=== PATIENT | male | born 1940 | race Caucasian/White ===

== ENCOUNTER 2022-02-03 04:42 | Emergency (ER) | payer MEDICARE, SELFPAY ==
[2022-02-03] VITALS (8 sets, daily range): BP systolic 133–146; BP diastolic 75–82; PULSE 59–87; RESP 16–18; TEMP 36.9–37; O2SAT 95–98; BMI 29.4
--- NOTE | 2022-02-03 | ECG_ITS ---
Test Reason : DIZZINESS Blood Pressure : / mmHG Vent. Rate : 059 BPM Atrial Rate : 059 BPM P-R Int : 210 ms QRS Dur : 104 ms QT Int : 422 ms P-R-T Axes : 055 -08 029 degrees QTc Int : 417 ms Sinus bradycardia with 1st degree A-V block Otherwise normal ECG When compared with ECG of 28-DEC-2005 13:59, No significant change was found Referred By: Generic ED Physician Electronically Signed By:BRIAN ROSARIO
--- NOTE | ~2022-02-03 | CT_ITS ---
EXAMINATION: CT HEAD WITHOUT CONTRAST CLINICAL INFORMATION: Dizziness COMPARISON: None. TECHNIQUE: Contiguous axial imaging was performed from the skull base to vertex without intravenous contrast. This CT examination was performed using dose optimization techniques as appropriate, variously including the following: * Automated exposure control * Adjustment of mA and/or kV according to patient size (this includes techniques or standardized protocols for targeted exams where dose is matched to indication/reason for exam; i.e. extremities or head) Use of iterative reconstruction technique DLP: 770 mGy-cm. FINDINGS: There is no evidence of acute intracranial hemorrhage or territorial infarction. No abnormal mass effect or midline shift is seen. Lopez to white matter differentiation is well preserved. No extra-axial fluid collections are identified. No hydrocephalus. Proportional prominence of the ventricles and sulcal spaces is consistent with mild volume loss. Patchy periventricular and deep white matter hypoattenuation is consistent with mild small vessel ischemic changes. Right occipital craniectomy. No acute osseous or soft tissue abnormality. The mastoid air cells and visualized portions of the paranasal sinuses are well aerated. CT/CT head/brain wo con IMPRESSION: No acute intracranial pathology.
[2022-02-03 05:21] LABS: MANUAL DIFF FLAG NO
[2022-02-03 05:23] LABS: Basophils Percent Auto 0.4 % (0-2); Eosinophils Absolute Auto 0.4 X10*3/uL (0.0-0.4); Eosinophils Percent Auto 6.4 % (0-4); Hemoglobin 14.8 g/dl (14.0-18.0); Imm Gran Abs Auto 0.04 X10*3/uL (0.00-0.03); Imm Gran Pct Auto 0.6 % (0.0-0.4); Lymphocytes Absolute Auto 1.5 X10*3/uL (1.2-4.9); Lymphocytes Percent Auto 22.6 % (20-40); Mean Corpuscular HGB Conc 32.2 g/dl (31.0-36.0); Mean Corpuscular Hemoglobin 29.3 pg (27.0-33.0); Mean Corpuscular Volume 91.1 fL (80.0-98.0); Mean Platelet Volume 9.7 fL (9.4-12.4); Monocytes Absolute Auto 0.7 X10*3/uL (0.1-1.2); Monocytes Percent Auto 10.3 % (2-11); Neutrophils Percent Auto 59.7 % (45-73); Platelet Count 192 X10*3/uL (160-400); Red Blood Count 5.05 X10*6/uL (4.60-5.80); Red Cell Distribution Width 14.1 % (11.0-16.0); White Blood Count 6.7 X10*3/uL (4.8-10.8)
[2022-02-03 05:24] LABS: Appearance Urine Clear; Color Urine Yellow; Glucose Urine UA Negative (Negative); Leukocyte Esterase Urine Moderate (2+) (Negative); Nitrite Urine Positive (Negative); PH 5.5 (5.0-8.0); Urine Blood Trace (Negative); Urine Ketones Negative (Negative); Urine Protein Trace mg/dL (Neg-Trace)
[2022-02-03 05:26] LABS: Bacteria Urine 4+ (None Seen); Hyaline Casts Urine 0-2 /LPF (0-2); Squamous Epithelial Cell Urine 0-2 /HPF (0-2); UACC Culture Trigger YES; WBC Urine >50 /HPF (0-5)
--- NOTE | 2022-02-03 05:35 | ED.DIZZY ---
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 He states it lasted until EMS came. He had a normal day yesterday. He has not fallen or hit his head. MD elicited complaint: lightheadedness Onset (ago): hour(s) (330am) Timing: sudden onset and awoke with symptoms Description: lightheadedness Context: change in body position History of similar symptoms: No Exacerbating factors: change in body position Relieving factors: remaining still (he felt like if he was going to stand up he might fall ) Associated symptoms: other (unsure if he had tingling in his face) Related Data Allergies Allergy/AdvReac Type Severity Reaction Status Date / Time levofloxacin Allergy Unknown nausea and Verified 02/03/22 05:00 vomiting penicillin V Allergy Unknown Unknown Verified 02/03/22 05:00 Review of Systems Review of Systems: Constitutional : No Fever, No Chills, No Fatigue ENT/Mouth : No sore throat, No Rhinorrhea Eyes: No Eye Pain, No Swelling, No Redness Cardiovascular : No Chest Pain, No SOB, No Dyspnea on Exertion Respiratory : No Cough, No Sputum Gastrointestinal : No Nausea, No Vomiting, No Diarrhea, No abdominal Pain Genitourinary : No Dysuria, No Urinary Frequency, No Hematuria, Musculoskeletal : No joint pain, No Myalgias, No Joint Swelling Skin : No Skin Lesions, No rash Neuro : No Weakness, No Numbness, pos Dizziness, no Headache Psych : No Anxiety/Panic, No Depression Heme/Lymph: No Bruising, No Bleeding,No Lymphadenopathy Endocrine : No Polyuria, No Polydipsia All other systems reviewed and are negative [facility] Past Medical History Attestation statement: The following information was validated with the patient. Medical History Acoustic neuroma GERD (gastroesophageal reflux disease) HTN (hypertension) Social History Social History Alcohol intake: unknown Patient Tobacco Use Status: Never used Tobacco Use of substances other than those prescribed or required for medical reasons: Unknown Physical Exam Vital Signs: Vital Signs: Last Vital Signs Temp 98.6 F 02/03/22 05:45 Pulse 61 02/03/22 05:45 Resp 16 02/03/22 05:45 BP 145/76 H 02/03/22 05:45 Pulse Ox 95 02/03/22 05:45 O2 Del Method 02/03/22 05:45 BMI result Body Mass Index 29.4 Appearance: Alert. Oriented X3. No acute distress. Eyes: Pupils equal, round and reactive to light. ENT: Pharynx normal. Neck: Normal inspection. Neck supple. CVS: Normal heart rate and rhythm. Pulses normal. Respiratory: No respiratory distress. Breath sounds normal. Abdomen: Soft and non-tender. Skin: Skin warm and dry. Normal skin color. Normal skin turgor. Extremities: No lower extremity edema. No calf ttp Neuro: Oriented X 3. chronic R sided facial droop including forehead No motor deficit. No sensory deficit. Course Course Course Narrative: signed out to Dr. Elizondo repeat troponin MDM - Dizziness MDM Narrative Medical decision making narrative: 81 yo male with HTN, GERD, acoustic neuroma with surgery resulting in R sided facial paralysis here with c/o feeling like he could get dizzy and just off since 330am. No new focal deficits. The symptoms have resolved. He notes if he stood up that he might pass out. No CP/SOB no reported GIB symptoms. At this time will need labs, EKG, CT head for mass, repeat troponin. Dispo per results and findings. Lab Data Result diagrams: 02/03/22 05:11 02/03/22 05:11 Labs: Lab Results 02/03/22 02/03/22 02/03/22 Range/Units 05:11 05:11 05:11 WBC 6.7 (4.8-10.8) X10*3/uL RBC 5.05 (4.60-5.80) X10*6/uL Hgb 14.8 (14.0-18.0) g/dl Hct 46.0 (42.0-52.0) % MCV 91.1 (80.0-98.0) fL MCH 29.3 (27.0-33.0) pg MCHC 32.2 (31.0-36.0) g/dl RDW 14.1 (11.0-16.0) % Plt Count 192 (160-400) X10*3/uL MPV 9.7 (9.4-12.4) fL Immature Gran % (Auto) 0.6 H (0.0-0.4) % Neut % (Auto) 59.7 (45-73) % Lymph % (Auto) 22.6 (20-40) % Sheridan % (Auto) 10.3 (2-11) % Eos % (Auto) 6.4 H (0-4) % Baso % (Auto) 0.4 (0-2) % Lymph # (Auto) 1.5 (1.2-4.9) X10*3/uL Sheridan # (Auto) 0.7 (0.1-1.2) X10*3/uL Eos # (Auto) 0.4 (0.0-0.4) X10*3/uL Baso # (Auto) 0.0 (0.0-0.2) X10*3/uL Abs Immat Gran (auto) 0.04 H (0.00-0.03) X10*3/uL Absolute Neuts (auto) 4.0 (2.0-8.3) x10*3/uL Absolute Nucleated RBC 0.000 (0.0-0.012) X10*3/uL Nucleated RBC % (auto) 0.0 (0.0-0.2) /100WBC Sodium 140 (135-145) mmol/L Potassium 4.3 (3.3-5.1) mmol/L Chloride 106 (96-108) mmol/L Carbon Dioxide 24 (22-29) mmol/L Anion Gap 14 (12-20) BUN 23 H (9-16) mg/dL Creatinine 1.31 (0.5-1.4) mg/dL Estim Creat Clear Calc 52.3 Estimated GFR 53 Fasting Glucose 112 H (60-99) mg/dL Calcium 8.8 (8.4-10.2) mg/dL Urine Color Urine Appearance Urine pH (5.0-8.0) Ur Specific Mill[place] (1.005-1.025) Urine Protein (Neg-Trace) mg/dL Urine Glucose (UA) (Negative) mg/dL Urine Ketones (Negative) mg/dL Urine Blood (Negative) Urine Nitrite (Negative) Ur Leukocyte Esterase (Negative) Urine RBC (0-2) /HPF Urine WBC (0-5) /HPF Ur Squamous Epith Cells (0-2) /HPF Urine Bacteria (None Seen) Hyaline Casts (0-2) /LPF COVID-19 (NERY) Negative (Negative) COVID-19 Clin Com See Note 02/03/22 Range/Units 05:14 WBC (4.8-10.8) X10*3/uL RBC (4.60-5.80) X10*6/uL Hgb (14.0-18.0) g/dl Hct (42.0-52.0) % MCV (80.0-98.0) fL MCH (27.0-33.0) pg MCHC (31.0-36.0) g/dl RDW (11.0-16.0) % Plt Count (160-400) X10*3/uL MPV (9.4-12.4) fL Immature Gran % (Auto) (0.0-0.4) % Neut % (Auto) (45-73) % Lymph % (Auto) (20-40) % Sheridan % (Auto) (2-11) % Eos % (Auto) (0-4) % Baso % (Auto) (0-2) % Lymph # (Auto) (1.2-4.9) X10*3/uL Sheridan # (Auto) (0.1-1.2) X10*3/uL Eos # (Auto) (0.0-0.4) X10*3/uL Baso # (Auto) (0.0-0.2) X10*3/uL Abs Immat Gran (auto) (0.00-0.03) X10*3/uL Absolute Neuts (auto) (2.0-8.3) x10*3/uL Absolute Nucleated RBC (0.0-0.012) X10*3/uL Nucleated RBC % (auto) (0.0-0.2) /100WBC Sodium (135-145) mmol/L Potassium (3.3-5.1) mmol/L Chloride (96-108) mmol/L Carbon Dioxide (22-29) mmol/L Anion Gap (12-20) BUN (9-16) mg/dL Creatinine (0.5-1.4) mg/dL Estim Creat Clear Calc Estimated GFR Fasting Glucose (60-99) mg/dL Calcium (8.4-10.2) mg/dL Urine Color Yellow Urine Appearance Clear Urine pH 5.5 (5.0-8.0) Ur Specific [place] 1.020 (1.005-1.025) Urine Protein Trace (Neg-Trace) mg/dL Urine Glucose (UA) Negative (Negative) mg/dL Urine Ketones Negative (Negative) mg/dL Urine Blood Trace H (Negative) Urine Nitrite Positive H (Negative) Ur Leukocyte Esterase Moderate (2+) H (Negative) Urine RBC 3-5 H (0-2) /HPF Urine WBC >50 H (0-5) /HPF Ur Squamous Epith Cells 0-2 (0-2) /HPF Urine Bacteria 4+ (None Seen) Hyaline Casts 0-2 (0-2) /LPF COVID-19 (NERY) (Negative) COVID-19 Clin Com ECG Data Attestation: I personally reviewed and interpreted this ECG as follows: ECG interpretation date: 02/03/22 ECG interpretation time: 05:50 Interpretation: Rate: 59 Rhythm: sinus bradycardia with 1st degree AVB Harvel: left Normal P waves. 1st degree AVB Normal QRS complex. ST T wave : normal no MILLY qTC: normal prior studies: no acute ischemia The study has been interpreted contemporaneously by me. Discharge Plan Discharge Clinical Impression: Light-headedness Patient Disposition: Still a Patient
[2022-02-03 05:37] LABS: COVID-19 Test Negative (Negative)
[2022-02-03 05:39] LABS: Anion Gap 14 (12-20); Blood Urea Nitrogen 23 mg/dL (9-16); Calcium 8.8 mg/dL (8.4-10.2); Carbon Dioxide 24 mmol/L (22-29); Chloride 106 mmol/L (96-108); Creatinine Clr Calc Pharmacy 52.3; Estimated Glomerular Filt Rate 53; Glucose Fasting 112 mg/dL (60-99); Potassium 4.3 mmol/L (3.3-5.1); Sodium 140 mmol/L (135-145)
--- NOTE | 2022-02-03 05:39 | PC.NURSE ---
pt is back from CAT scan now
[2022-02-03 05:50] LABS: Alanine Aminotransferase 17 U/L (0-40); Albumin Level 3.6 g/dL (3.5-5.0); Alkaline Phosphatase 50 U/L (39-117); Aspartate Amino Transferase 19 U/L (5-37); Bilirubin Direct 0.3 mg/dL (0.0-0.5); Bilirubin Total 0.7 mg/dL (0.0-1.0); Magnesium 1.9 mg/dL (1.6-2.6); Total Protein 6.1 g/dL (6.5-8.0)
[2022-02-03 05:55] LABS: Troponin-I High Sensitivity < 3.5 ng/L (<3.5-35.0)
[2022-02-03 08:06] LABS: Lactic Acid 1.2 mmol/L (0.5-2.0)
[2022-02-03 08:15] LABS: Troponin-I High Sensitivity < 3.5 ng/L (<3.5-35.0)
[2022-02-03] MEDS: cefTRIAXone sodium 1 GM in 0.9 % Sodium Chloride 50 ML IV (08:28)
--- NOTE | 2022-02-03 09:07 | PC.NURSE ---
PT AOX4 AMB WITH STEADY GAIT WILL FOLLOW UP WITH PCP OR RETURN WITH ANY WORSENING SYMPTOMS, PT STATES UNDERSTANDING OF DC WITH TEACH BACK
== END 2022-02-03 09:07 | disposition home or self-care (01) ==
PROVIDERS: Emergency Medicine; Emergency Provider Emergency Medicine; PCP Nurse Practitioner Family
DX: R42 Dizziness and giddiness (principal); N39.0 Urinary tract infection, site not specified; B96.20 Unspecified Escherichia coli [E. coli] as the cause of diseases classified elsewhere; Z20.822 Contact with and (suspected) exposure to COVID-19; I10 Essential (primary) hypertension
CPT/HCPCS: 36415; 70450; 80048; 80076; 81001; 83605; 83735; 84484; 85025; 87040; 87086; 87088; 87186; 87635; 93005; 96374; 99284; 99285; J0696

== ENCOUNTER 2025-02-22 08:15 | Outpatient (AMB) | payer MEDICARE, SELFPAY ==
[2025-02-22 08:25] VITALS: BP 140/70; PULSE 64; TEMP 36.8; O2SAT 97; BMI 25.3
--- NOTE | 2025-02-22 08:25 | MHC.OFFWIV ---
Intake Vital Signs 02/22/25 08:25 Height 5 ft 10 in Weight 176 lb BMI 25.3 BP 140/70 H Blood Pressure Location Lt brachial Position Sitting Pulse 64 Pulse Source Pulse Oximeter Temp 98.3 F Temp Source Oral Pulse Oximetry (%) 97 Oxygen Delivery Method Room Air Intake Visit Reasons: ep sore lump on right arm Patient Tobacco Use Status: Never used Tobacco Allergies levofloxacin Allergy (Unknown, Verified 02/22/25 08:30) nausea and vomiting penicillin V Allergy (Unknown, Verified 02/22/25 08:30) Unknown Do you need a note to return to daycare/school/sports/work: No HPI HPI Comments History of Present Illness Details History of Present Illness - The patient is an 84-year-old male presenting with a lump and soreness in the right arm. - The soreness began over the weekend, initially localized to the right elbow joint, and progressed to a lump formation in the forearm. - The lump is now red, tender, and warm, though not severely painful. - There is no history of trauma or significant physical activity preceding the symptoms. - The patient has no prior history of blood clots in him or his family.. Physical Exam General: Cooperative, healthy appearing, comfortable, no acute distress and well developed Orientation: Patient oriented x3 Limitations: No limitations Head: Normal to inspection Ears: Hearing grossly normal bilaterally Nose: Normal External nose present Face and sinus: Normal facial exam Eyes: Appearance normal, both eyes and all related structures Neck: Normal visual inspection and Yes full ROM Respiratory: Normal respiratory effort and able to speak in complete sentences. Skin: as below Neuro: Patient oriented x3 Extremities: erythema, edema and tender lump noted on the right forearm [facility] Medical History Acoustic neuroma GERD (gastroesophageal reflux disease) HTN (hypertension) Social History Alcohol intake: unknown Patient Tobacco Use Status: Never used Tobacco Review of Systems Const All systems reviewed & are unremarkable except as noted in HPI and below Physical Exam Vital Signs: Last Vital Signs Temp 98.3 F 02/22/25 08:25 Pulse 64 02/22/25 08:25 BP 140/70 H 02/22/25 08:25 Pulse Ox 97 02/22/25 08:25 Oxygen Delivery Method Room Air 02/22/25 08:25 BMI result Body Mass Index 25.3 Assessment & Plan Assessment & Plan (1) Edema of right upper extremity: Code(s): R60.0 - Localized edema Plan: Patient was informed and verbally consented to the use of an ambient scribe for clinic note documentation during this visit. 1. Edema Of The Right Arm - Plan to perform a venous duplex ultrasound of the right upper extremity to rule out deep vein thrombosis (DVT). - Coordination with the hospital for the ultrasound due to scheduling constraints at the clinic. - Will call with results. (2) Lump of skin of right upper extremity: Code(s): R22.31 - Localized swelling, mass and lump, right upper limb Plan: as above Orders: Orders US venous duplex UE RT Today R22.31 - Localized swelling, mass and lump, right upper limb, R60.0 - Localized edema Medications: Discontinued cephalexin Discontinued Reason: Patient Completed Course 500 mg PO Q8H 21 caps 0RF Coding Level of Care Code New Pt Level 5 (90270) Diagnoses Edema of right upper extremity R60.0 Lump of skin of right upper extremity R22.31
== END 2025-02-22 09:21 | disposition home or self-care (01) ==
PROVIDERS: PCP Physician Assistant Surgical; Visit Provider Physician Assistant
DX: R22.31 Localized swelling, mass and lump, right upper limb (principal)

== ENCOUNTER 2025-02-22 15:36 | Outpatient (REF) | payer MEDICARE, SELFPAY ==
--- OUTSIDE RECORDS SUMMARY | 2025-02-16 14:17 | XMS_ITS | Encounter Summary ---
Author Organization [facility] Address [address] [place] [id number] Phone Care Team Providers Care Maintenance And Custodian Supervisor Name Role Phone Jason Deal PA-C Primary Care Provider [phone] Rafael Reaves MD Unavailable Encounter Details Date Type Department Care Team (Latest Contact Info) Description 02/16/2025 2:17 PM EDT - 02/16/2025 11:59 PM EDT Hospital Encounter [facility] [address] [place] [address] Jason Deal PA-C [address] [place] [address] [email or web address] Discharge Disposition: Home or Self Care Social History Tobacco Use Types Packs/Day Years Used Date Smoking Tobacco: Never Smokeless Tobacco: Never Alcohol Use Standard Drinks/Week Comments Yes 0 (1 standard drink = 0.6 oz pur e alcohol) 1-2 drinks, monthly or less Child or Family Care Answer Date Record ed Do you have problems with on e of the following making it difficult for you to work, study, or receive health care? No 09/11/2022 Education Answer Date Recorded Are you interested in more education? Not on zeus e 09/12/2024 Are you concerned about learning? Not on file 09/12/2024 No 09/12/2024 No 09/12/2024 Food Answer Date Recorded Within the past 6 months we worried whether our food would run out before we got money to buy more. Never True 09/11/2022 Within the past 6 months the food we bought just didn't last and we didn't have enough money to get more. Never True Residential Stability Answer Date Recor ded Family situation today data Not on file 08/15 How many times have you move d in the past 12 months? Zero (I did not move) 09/11/2022 Paying for Meds Answer Date Recorded Do you have trouble paying for medicines? No 09/11/2022 Paying Utility Bills Answer Date Record ed Do you have trouble paying your heating or elect ricity bill? No 09/11/2022 Transportation Answer Date Recorded Has the lack of transportati on kept you from medical appointments or from getting medications? No 09/11/2022 Unemployment Answer Date Recorded Are you currently unemployed or working on a part-time or temporary basis, and looking for work? No 09/11/2022 Digital Access Answer Date Recorded No 11/07/2022 No 11/07/2022 Reliable internet access at home? Not on file 11/07/2022 Device with a working camera? Not on file Intimate Partner Violence Answer Date R ecorded Are you denied basic needs s uch as food, clothing, or medical care? No 06/21/2024 In the past 12 months have y ou been in a relationship with a person who hurts, threatens, or tries to control you? No 06/21/2024 Are you denied basic needs s uch as food, clothing, or medical care? No 06/21/2024 In the past 12 months have y ou been in a relationship with a person who hurts, threatens, or tries to control you? No 06/21/2024 Sex and Gender Information Value Date Recorded Sex Assigned at Male 11/08/2020 8:04 AM EDT Legal Sex Male 10:11 PM EDT Gender Identity Male 11/08/2020 8:04 AM EDT Sexual Orientation Straight 11/08/2020 8: 04 AM EDT documented as of this encounter Medications at Time of Discharge acetaminophen (TYLENOL) 325 mg tablet Take 1-2 tablets (325-650 mg total) by mouth every 6 (six) hours as needed (mild - moderate pain). 03/10/2023 aspirin 81 mg chewable tablet Take 1 tablet (81 mg total) by mouth daily. 90 tablet 3 09/06/2020 atenolol (TENORMIN) 50 mg tabletIndications:E ssential hypertension TAKE 1 TABLET DAILY 90 tablet 3 08/02/2024 atorvastatin (LIPITOR) 80 MG tabletIndications:M ixed hyperlipidemia TAKE 1 TABLET ONCE DAILY 90 tablet 3 01/27/2025 clotrimazole-betame thasone (LOTRISONE) cream Apply 1 application topically 2 (two) times a day as needed. APPLY TO AFFECTED AREA 03/08/2021 glucosamine/msm/cho ndroitin A (GLUCOSAMINE OPG-EHV-WITMINQXUD) 400-200-333 mg TabIndications:3 tabs daily Take 3 tablets by mouth daily. Indications: 3 tabs daily 90 each 3 09/06/2020 hydrocortisone 2.5 % cream Apply topically 2 (two) times a day. 28 g 1 02/01/2025 lisinopril (PRINIVIL,ZESTRIL) 40 MG tabletIndications:E ssential hypertension Take 1 tablet (40 mg total) by mouth every morning. 90 tablet 3 10/05/2024 nitroglycerin (NITROSTAT) 0.[address] 1 tablet (0.4 mg total) under the tongue every 5 (five) minutes as needed for chest pain. 15 tablet 2 09/19/2024 omeprazole (PRILOSEC) 40 MG capsuleIndications: Gastroesophageal reflux disease without esophagitis TAKE 1 CAPSULE TWICE DAILY 180 capsule 3 10/31/2024 documented as of this encounter Plan of Treatment Upcoming Encounters Date Type Department Care Team (Late st Contact Info) Description 02/15/2025 Procedure Pass [facility], Ct Scan - [facility] [address] [place] [address] 03/07/2025 7:00 AM EDT Office Visit [facility] [address] [facility] 3rd Floor, [address] [place] [address] Carlos Nixon, [address] [facility] [address] [place] [address] 03/18/2025 12:00 PM EDT Appointment [facility], X-Ray - [address] [address] Jason Deal PA-C [address] [place] [email or web address] 03/18/2025 2:00 PM EDT Appointment [facility], Ct Scan - [address] [address] Jason Deal PA-C [address] [place] [phone] 04/04/2025 2:30 PM EDT Procedure visit [facility] [address] [place] [phone] Caty Cortez MD [address] [place] [address] [facility] [place] [phone] [email or web address] 07/05/2025 7:20 AM EST Office Visit [facility] [address] [place] [phone] Jason Deal PA-C [address] [place] [address] [phone] 07/10/2025 12:30 PM EST Office Visit [facility] [address] [place] [address] [phone] Elizabeth Hoffman MD [address] [place] [address] [facility] [address] documented as of this encounter Procedures Procedure Name Priority Date/Time Associated Diagnosis Comments HC BLOOD OCCULT FECAL HGB DETER IA QUAL FECES 1-3 Routine 02/16/2025 7:00 AM EDT Unexplained weight loss documented in this encounter Results * Fecal immunochemical test x1 (FIT) (02/16/2025 7:00 AM EDT) Immuno Fecal Occult Negative Negative [facility] Stool (Stool) 02/16/2025 7:0 0 AM EDT 02/16/2025 2:22 PM EDT us Jason Deal PA-C BODY FLUIDS AND STOOLS ORDERA BLES Final Result [address] [address] documented in this encounter Visit Diagnoses Diagnosis Unexplained weight loss Loss of weight documented in this encounter Additional Health Concerns Assessment Noted Time PHQ-2 Depression Total Score: 2 06/21/19 25 7:17 AM EST documented as of this encounter Care Teams Maintenance And Custodian Supervisor Relationship Specialty Start Date End Date Jason Deal PA-C [address] [place] [address] [email or web address] PCP - General Physician Biology Teacher 04/04/24 Rafael Reaves MD [address] [place] [address] [email or web address] Insurance Assigned Provider 09/18/24 documented as of this encounter Additional Source Comments The information contained in this document represents components of the legal health record. It is not the complete legal health record.[facility]
--- NOTE | ~2025-02-22 | US_ITS ---
EXAMINATION: US TRIPLEX UPPER EXTREMITY, RIGHT CLINICAL INFORMATION: Right upper extremity swelling COMPARISON: None available. TECHNIQUE: Color-flow triplex imaging with spectral analysis and compression Doppler was performed on the right upper extremity. FINDINGS: The right internal jugular, subclavian, and axillary veins are patent and free of thrombus. The imaged segment of the right brachiocephalic vein is patent. Spectral doppler waveforms are normal. The brachial, cephalic, radial, and ulnar veins are patent and compressible. The basilic vein is dilated and contains heterogeneous hypoechoic material without blood flow on color Doppler duplex. US/US venous duplex UE RT IMPRESSION: Superficial venous thrombosis involving the basilic vein. Bibiana Grace PAC was contacted by the pet technologist at 4:45 PM Eastern time. No evidence of deep venous thrombosis involving the right upper extremity. Electronically signed by: Juanito Palmer MD 02/22/2025 05:33 PM EDT
--- OUTSIDE RECORDS SUMMARY | 2025-02-22 18:27 | XMS_ITS | Clinical Summary ---
Author Organization [employer] [facility] Address [address] [place] [address] Care Team Providers Care Rv Service Technician Name Role Phone Lorne Roberts MD Primary Care Provider [phone] Allergies Active Allergy Reactions Criticality Noted Date Comments Levofloxacin Diarrhea,Other (See Comments) 04/17 Penicillins Rash Low 05/14/2017 Medications Medication Sig Dispensed Refills Start Date End Date Status aspirin 81 MG chewable tablet Chew 81 mg by mouth. 0 Active atenolol (TENORMIN) tablet 50 mg 0 09/07/2017 Active atorvastatin (LIPITOR) tablet 80 mg Take 80 mg by mouth. 0 Active NEXIUM 40 MG capsule 0 09/23/2017 Acti ve Glucosamine-Chondroiti n-MSM 400-333.3-200 MG TABS 2 tablets 0 Active ivermectin (STROMECTOL) 3 MG tablet 0 10/07/2017 Active lisinopril (PRINIVIL,ZESTRIL) tablet 20 mg 0 09/14/2017 Active mupirocin (BACTROBAN) 2 % ointment 0 10/01/2017 Active Family History Medical History Relation Name Comments Cancer Father Prostatitis Father Arthritis Mother Dementia Mother Relation Name Status Comments Father Mother Social History Tobacco Use Types Packs/Day Years Used Date Smoking Tobacco: Never Smokeless Tobacco: Never Alcohol Use Standard Drinks/Week Comments Yes 1 (1 standard drink = 0.6 oz pur e alcohol) month Sex and Gender Information Value Date Recorded Sex Assigned at Not on file Gender Identity Not on file Sexual Orientation Not on file Last Filed Vital Signs Vital Sign Reading Time Taken Comments Blood Pressure 140/90 10/08/2017 9:50 AM EDT Pulse - - Temperature - - Respiratory Rate - - Oxygen Saturation - - Inhaled Oxygen Concentration - - Weight 90.7 kg (200 lb) 10/08/2017 9:50 AM EDT Height 177.8 cm (5' 10 ) 10/08/2017 9:50 AM EDT Body Mass Index 28.7 10/08/2017 9:50 AM EDT Plan of Treatment Health Maintenance Due Date Last Done Comments COVID-19 Vaccine (#1) 1942 Depression Screening 1954 Preventative Health Evaluation 1960 Shingrix-Zoster Vaccine (1 of 2) 1992 Fall Risk Assessment 2007 DTap / Tdap / Td (1 - Tdap) 10/24/2009 10/23/2009 RSV Adult > 60+ Yrs or (1 - 1-dose 75+ series) 2017 Influenza Vaccine (#1) 2025 7, 04/30/2016, 04/18/2015, Additional history exists Pneumococcal Vaccine Completed 07/12/2015, 10/24/19 10 Hepatitis B Vaccines Aged Out No long er eligible based on patient's age to complete this topic RSV Ped < 20 months Aged Out No longe r eligible based on patient's age to complete this topic Care Teams Rv Service Technician Relationship Specialty Start Date End Date Lorne Roberts MD [address] [facility] [place] [place] [address] PCP - General Internal Medicine 09/30/17
--- OUTSIDE RECORDS SUMMARY | 2025-02-22 18:27 | XMS_ITS | Encounter Summary ---
Author Organization [facility] Address [address] [place] [address] Phone Care Team Providers Care Property Underwriter Name Role Phone Jason Deal PA-C Primary Care Provider [phone] Rafael Reaves MD Unavailable Reason for Visit * Reason Onset Date Comments Results 02/20/2025 Encounter Details Date Type Department Care Team (Late st Contact Info) Description 02/20/2025 Telephone [facility] Internal Medicine [address] [place], [place] [phone] Jason Deal PA-C [address] [place], [place] [phone] [email or web address] Results Social History Tobacco Use Types Packs/Day Years [...] AM EDT documented as of this encounter Progress Notes * Vita Davenport CMA - 02/20/2025 2:12 PM EDT Call to pt, aware * Vita Davenport CMA - 02/20/2025 2:12 PM EDT Jason Deal PA-C 02/15/2025 5:37 PM EDT Please let the patient know that his CMP and TSH are within normal limits. * Vita Davenport CMA - 02/20/2025 2:10 PM EDT Images from the original note were not included. Jason Deal PA-C [facility] Please let the patient know his FIT test was negative for blood in stool. documented in this encounter Plan of Treatment Upcoming Encounters Date Type Department Care Team (Late st Contact Info) Description 02/15/2025 Procedure Pass [facility], Ct Scan - [address] [address] 03/07/2025 7:00 AM EDT Office Visit [facility] [address] [place] [address], [address] [place] [address] Carlos Nixon DO [address] [place] [address] 03/18/2025 12:00 PM EDT Appointment [facility], X-Ray - [address] [address] Jason Deal PA-C [address] [place] [address] [email or web address] 03/18/2025 2:00 PM EDT Appointment [facility], Ct Scan - [address] [address] Jason Deal PA-C [address] [place] [address] 04/04/2025 2:30 PM EDT Procedure visit [facility] Orthopedics & Sports Medicine [address] [place] [address] [phone] Caty Cortez MD [address] [place] [address] Orthopedics & Sports [facility], [place], [place] [phone] [email or web address] 07/05/2025 7:20 AM EST Office Visit [facility] Internal Medicine [address] [place] [address] [phone] Jason Deal PA-C [address] [place] [address] [phone] 07/10/2025 12:30 PM EST Office Visit [facility] Orthopedics & Sports [address] [phone] Elizabeth Hoffman MD [address] [place] [address] Orthopedics & Sports [facility], [place], [place] [phone] documented as of this encounter Visit Diagnoses Not on filedocumented in this encounter Additional Health Concerns Assessment Noted Time PHQ-2 Depression Total Score: 2 06/21/19 7:17 AM EST documented as of this encounter Care Teams Property Underwriter Relationship Specialty Start Date End Date Jason Deal PA-C [address] [place] [address] [email or web address] PCP - General Physician Beater Operator 04/04/24 Rafael Reaves MD [address] [place] [address] [email or web address] Insurance Assigned Provider 09/18/24 documented as of this encounter Additional Source Comments The information contained in this document represents components of the legal health record. It is not the complete legal health record.[facility]
--- OUTSIDE RECORDS SUMMARY | 2025-02-22 18:27 | XMS_ITS | Encounter Summary ---
Author Organization [facility] Address [address] [facility] [address] [place] [address] Phone Care Team Providers Care Pediatric Assistant Name Role Phone Beth Vanegas NP Primary Care Provider [phone] Rafael Reaves MD Primary Care Provider [phone] Jason Deal PA-C Primary Care Provider [phone] Rafael Reaves MD Unavailable Encounter Details Date Type Department Care Team (Late st Contact Info) Description 12/01/2022 Procedure Pass [facility], [address] [address] Social History Tobacco Use Types Packs/Day Years Used Date Smoking Tobacco: Never Smokeless Tobacco: Never Alcohol Use Standard Drinks/Week Comments Yes 0 (1 standard drink = 0.6 oz pur e alcohol) rare Child or Family Care Answer Date Record ed Do you have problems with on e of the following making it difficult for you to work, study, or receive health care? No 09/11/2022 Education Answer Date Recorded Are you interested in help w ith more adult education (for example, completing high school, GED, job training, learning the Malaysian language, technical skills, or developing parenting skills)? No 09/11/2022 Food Answer Date Recorded Within the past [...] with a working camera? Not on file Sex and Gender Information Value Date Recorded Sex Assigned at Male 11/08/2020 8:04 AM EDT Legal Sex Male 10:11 PM EDT Gender Identity Male 11/08/2020 8:04 AM EDT Sexual Orientation Straight 11/08/2020 8: 04 AM EDT documented as of this encounter Plan of Treatment Upcoming Encounters Date Type Department Care Team (Late st Contact Info) Description 02/15/2025 Procedure Pass [facility], Ct Scan - [address] [address] 03/07/2025 7:00 AM EDT Office Visit [facility] [address] [place] [address] 3rd Floor, [address] [place] [address] Carlos Nixon DO [address] [facility] [address] [place] [address] 03/18/2025 12:00 PM EDT Appointment [facility], X-Ray - [address] [address] Jason Deal PA-C [address] [place] [address] 03/18/2025 2:00 PM EDT Appointment [facility], Ct Scan - [address] [address] Jason Deal PA-C [address] [place] [address] [email or web address] 04/04/2025 2:30 PM EDT Procedure visit [facility] Orthopedics & Sports Medicine [address] [place] [address] [phone] Caty Cortez MD [address] [place] [address] Orthopedics & Sports [facility], [place], [place] [phone] [email or web address] 07/05/2025 7:20 AM EST Office Visit [facility] Internal Medicine [address] [place] [address] Jason Deal PA-C [address] [place] [address] [phone] 07/10/2025 12:30 PM EST Office Visit [facility] Orthopedics & Sports Medicine [address] [place] [address] [phone] Elizabeth Hoffman MD [address] [place] [address] Orthopedics & Sports Medicine, [place] [address] documented as of this encounter Visit Diagnoses Not on filedocumented in this encounter Additional Health Concerns Assessment Noted Time PHQ-2 Depression Total Score: 0 09/17/19 23 7:01 PM EDT documented as of this encounter Care Teams Pediatric Assistant Relationship Specialty Start Date End Date Beth Vanegas NP [email or web address] PCP - General Family Medicine 06/20/20 08/18/23 Rafael Reaves MD [address] [place] [address] [email or web address] PCP - General Internal Medicine 08/19/23 04/03/24 Jason Deal PA-C [address] [place] [phone] [email or web address] PCP - General Physician Exercise Instruct 04/04/24 Rafael Reaves MD [address] [place] [address] [email or web address] Insurance Assigned Provider 09/18/24 documented as of this encounter Additional Source Comments The information contained in this document represents components of the legal health record. It is not the complete legal health record.[facility]
--- OUTSIDE RECORDS SUMMARY | 2025-02-22 18:27 | XMS_ITS | Encounter Summary ---
Author Organization [facility] Address [address] [place] [address] Phone Care Team Providers Care Manager Of Construction Name Role Phone Beth Vanegas NP Primary Care Provider [phone] Rafael Reaves MD Primary Care Provider [phone] Jason Deal PA-C Primary Care Provider [phone] Rafeal Reaves MD Unavailable Reason for Referral * MRI/CAT Scan - Closed Specialty Diagnoses / Procedures Referred By Elizabeth viveros Referred To Contact Radiology Diagnoses Facial weakness Dizziness and giddiness Sensorineural hearing loss, bilateral Procedures MRI Brain Marianna Alonso PA-C Phone: tel: fax: [email or web address] Referral ID Status Reason Start Date Expiration Date Visits Re quested Visits Authorized [id number] Closed 12/01/2022 1 1 Encounter Details Date Type Department Care Team (Late st Contact Info) Description 12/01/2022 Transcribe Orders Virtual Department [address] [place] [address] Marianna Alonso PA-C [address] [place] [address] [email or web address] Facial weakness (Primary Dx); Dizziness and giddiness; Sensorineural hearing loss, bilateral Social History Tobacco Use Types Packs/Day Years [...] high school, GED, job training, learning the Brazilian language, technical skills, or developing parenting skills)? [...] st Contact Info) Description 02/15/2025 Procedure Pass [facility] Ct Scan [address] [address] 03/07/2025 7:00 AM EDT Office Visit [facility] [address] [facility] 3rd Floor, [address] [place] [address] Carlos Nixon DO 22 [facility] [address] [place] [address] 03/18/2025 12:00 PM EDT Appointment [facility] X-Ray - [address] [address] Jason Deal PA-C [address] [place] [address] 03/18/2025 2:00 PM EDT Appointment [facility] Ct Scan [address] [address] Jason Deal PA-C [address] [place] [address] 04/04/2025 2:30 PM EDT Procedure visit [facility] Orthopedics & Sports Medicine [address] [place] [address] Caty Cortez MD [address] [place] [address] Orthopedics & Sports Medicine, [place] [address] [email or web address] 07/05/2025 7:20 AM EST Office Visit [facility] Internal Medicine [address] [place] [address] Jason Deal PA-C [address] [place] [address] 07/10/2025 12:30 PM EST Office Visit [facility] Orthopedics & Sports Medicine [address] [place] [address] Elizabeth Hoffman MD [address] [place] [address] Orthopedics & Sports Medicine, [facility] [place] [address] [email or web address] documented as of this encounter Results * MRI BRAIN WITH AND WITHOUT CONTRAST (12/25/2022 6:10 PM EDT) Anatomical Region Laterality Modality Head Magnetic Resonan ce 12/30/2022 7:53 AM EDT Impressions 12/30/2022 6:22 PM EDT No intracranial cause for the reported symptoms identified. Narrative 12/30/2022 6:22 PM EDT MRI BRAIN WITH AND WITHOUT CONTRAST TECHNIQUE: MRI BRAIN WITH AND WITHOUT CONTRAST Multi-sequence, multi-planar MRI of the brain was performed before and after intravenous contrast. COMPARISON: None FINDINGS: Brain Parenchyma: There is mild scattered T2/FLAIR hyperintensity in the periventricular and deep white matter which is nonspecific and can be seen in the setting of chronic small vessel disease. No evidence of acute infarct, mass lesion, or hemorrhage. No IAC or CP angle mass. Ventricular System and Extra-Axial Spaces: Normal. No evidence of midline shift or hydrocephalus. Extracranial Structures: Arterial flow voids in the skull base are present. Procedure Note Isreal Awad MD - 12/30/2022 MRI BRAIN WITH AND WITHOUT CONTRAST TECHNIQUE: MRI BRAIN WITH AND WITHOUT CONTRAST Multi-sequence, multi-planar MRI of the brain was performed before andafter intravenous contrast. COMPARISON: None FINDINGS: Brain Parenchyma: There is mild scattered T2/FLAIR hyperintensity in theperiventricular and deep white matter which is nonspecific and can be seenin the setting of chronic small vessel disease. No evidence of acuteinfarct, mass lesion, or hemorrhage. No IAC or CP angle mass. Ventricular System and Extra-Axial Spaces: Normal. No evidence of midlineshift or hydrocephalus. Extracranial Structures: Arterial flow voids in the skull base arepresent. IMPRESSION: No intracranial cause for the reported symptoms identified. Marianna Alonso PA-C [facility] MR HEAD/NECK Final R esult documented in this encounter Visit Diagnoses Diagnosis Facial weakness- Primary Dizziness and giddiness Sensorineural hearing loss, bilateral Facial weakness Dizziness and giddiness Sensorineural hearing loss, bilateral documented in this encounter Additional Health Concerns Assessment Noted Time PHQ-2 Depression Total Score: 0 09/17/19 23 7:01 PM EDT documented as of this encounter Care Teams Manager Of Construction Relationship Specialty Start Date End Date Beth Vanegas NP [email or web address] PCP - General Family Medicine 06/20/20 08/18/23 Rafael Reaves MD [address] [place] [address] PCP - General Internal Medicine 08/19/23 04/03/24 Jason Deal PA-C [address] [place] [address] [email or web address] PCP - General Physician World History Teacher 04/04/24 Rafael Reaves MD [address] [place] [phone] Insurance Assigned Provider 09/18/24 documented as of this encounter Additional Source Comments The information contained in this document represents components of the legal health record. It is not the complete legal health record.[facility]
--- OUTSIDE RECORDS SUMMARY | 2025-02-22 18:27 | XMS_ITS | Encounter Summary ---
Author Organization [facility] Address [address] [place] [address] [place] [address] Phone Care Team Providers Care Study Abroad Coordinator Name Role Phone Jason Deal PA-C Primary Care Provider [phone] Rafael Reaves MD Unavailable Encounter Details Date Type Department Care Team (Late st Contact Info) Description 09/19/2024 Procedure Pass [facility] [address] [place] [address] Social History Tobacco Use Types Packs/Day Years [...] st Contact Info) Description 02/15/2025 Procedure Pass [facility], Ct Scan - [facility] [address] [place] [address] 03/07/2025 7:00 AM EDT Office [facility] 3[facility], [address] [place] [address] ArcCarlos reich DO 22 [facility] [address] [place] [address] 03/18/2025 12:00 PM EDT Appointment [facility], X-Ray - [address] [address] Jason Deal PA-C [address] [place] [address] 03/18/2025 2:00 PM EDT Appointment [facility], Ct Scan - [address] [address] Jason Deal PA-C [address] [place] [address] 04/04/2025 2:30 PM EDT Procedure visit [facility] Orthopedics & Sports Medicine [address] [place] [address] Caty Cortez MD [address] [place] [address] Orthopedics & Sports Medicine, [place], [place] [phone] [email or web address] 07/05/2025 7:20 AM EST Office Visit [facility] Internal Medicine [address] [place] [address] Jason Deal PA-C [address] [place] [address] [phone] 07/10/2025 12:30 PM EST Office Visit [facility] Orthopedics & Sports Medicine [address] [place] [address] [phone] Elizabeth Hoffman MD [address] [place] [address] Orth[facility], [place] [phone] documented as of this encounter Visit Diagnoses Not on filedocumented in this encounter Additional Health Concerns Assessment Noted Time PHQ-2 Depression Total Score: 2 06/21/19 25 7:17 AM EST documented as of this encounter Care Teams Study Abroad Coordinator Relationship Specialty Start Date End Date Jason Deal PA-C [address] [place] [address] [email or web address] PCP - General Physician Transformer Mechanic 04/04/24 Rafael Reaves MD [address] [place] [address] [email or web address] Insurance Assigned Provider 09/18/24 documented as of this encounter Additional Source Comments The information contained in this document represents components of the legal health record. It is not the complete legal health record.[facility]
--- OUTSIDE RECORDS SUMMARY | 2025-02-22 18:27 | XMS_ITS | Clinical Summary ---
Author Organization [facility] Address [address] [place] [address] Phone Care Team Providers Care Veterans Service Officer Name Role Phone Lorne Roberts MD Primary Care Provider [phone] Allergies Active Allergy Reactions Criticality Noted Date Comments Levofloxacin Diarrhea,Nausea And Vomiting 05/14 Penicillins Rash,Unknown Low 02/13/2016 Medications omeprazole (PriLOSEC) [address] capsule Take 1 capsule (40 mg total) by mouth 2 times daily. 5 Active atorvastatin (LIPITOR) 80 mg tablet Take 1 tablet (80 mg total) by mouth daily. 6 Active atenoloL (TENORMIN) 50 mg tablet Take 1 tablet (50 mg total) by mouth daily. 6 Active lisinopriL (PRINIVIL,ZESTR IL) 20 mg tablet Take 2 tablets (40 mg total) by mouth 1 (one) time each day. 6 Active aspirin 81 mg chewable tablet Chew 1 tablet (81 mg total) daily. 1 Active glucosamine/msm /chondroitin A (glucosamine UIx-qwn-eodbuwk itn) 400-200-333 mg tablet Take 3 tablets by mouth daily. 1 Active clotrimazole-be tamethasone (LOTRISONE) 1-0.05 % cream Apply 1 Application topically 2 times daily as needed. 1 Active hydrocortisone (ANUSOL-HC) 2.5 % rectal cream Insert into the rectum 2 (two) times a day. Active Encounters Date Type Department Care Team Description 01/11/2025 12:21 PM EDT Anesthesia Event [facility] [place] [address] [place] [address] Skyler Villatoro MD 01/11/2025 11:00 AM EDT - 01/11/2025 12:[address] [facility] [place] [address] [place] [phone] Ibrahima Becerra MD CYSTOSCOPY, BLADDER NECK DILATION, BLADDER NECK BIOPSY [63880 (CPT ) +1 more] 01/11/2025 9:07 AM EDT - 01/11/2025 3:35 PM EDT Hospital Encounter [facility] [place] [address] [place] [phone] Ibrahima Becerra MD Bladder neck contracture; Urethral stricture; Prostatic hemorrhage Discharge Disposition: Home or Self Care from Last 3 Months Surgical History Surgery Date Site/Laterality Comments CYSTOSCOPY BLADDER SURGERY CHOLECYSTECTOMY NEUROMA SURGERY Right right ear ANGIOPLASTY Medical History Medical History Date Comments Hyperlipidemia Hypertension Arthritis GERD (gastroesophageal reflux disease) Myocardial infarction ([facility] V24, [facility] V28) 1999 Cancer ([facility] V24, [facility] V28) prostate Urinary incontinence Social History Tobacco Use Types Packs/Day Years Used Date Smoking Tobacco: Never Smokeless Tobacco: Never Tobacco Cessation:Counseling Given: Not Answered Alcohol Use Standard Drinks/Week Comments Yes 0 (1 standard drink = 0.6 oz pur e alcohol) socially Interpersonal Safety Answer Date Record ed Physical Abuse 01/11/2025 Verbal Abuse 01/11/2025 Sex and Gender Information Value Date Recorded Sex Assigned at Not on file Legal Sex Male 6:06 PM EST Gender Identity Not on file Sexual Orientation Not on file Obstetrics History Last Filed Vital Signs Vital Sign Reading Time Taken Comments Blood Pressure 158/77 01/11/2025 1:55 PM EDT Pulse 58 01/11/2025 1:55 PM EDT Temperature 36.5 C (97.7 F) 01/11/2025 1:55 PM EDT Respiratory Rate 16 01/11/2025 1:55 PM EDT Oxygen Saturation 100% 01/11/2025 1:55 PM EDT Inhaled Oxygen Concentration - - Weight 81.6 kg (180 lb) 01/11/2025 9:25 AM EDT Height 177.8 cm (5' 10 ) 01/11/2025 9:25 AM EDT Body Mass Index 25.83 01/11/2025 9:25 AM EDT Plan of Treatment Health Maintenance Due Date Last Done Comments RSV Immunization Adult Patients (1 - 1-dose 75+ series) 2017 Cholesterol Screening (Lipid Panel) 05/17/2022 Medicare Annual Wellness Visit 05/17/2022 Social Influencers of Health Screening 05/17/2022 Depression Screening 06/15/2024 COVID-19 Vaccine ( season) 2025 07/10/2020, 06/19/2020 Influenza Vaccine (#1) 2025 , 03/23/2023, 04/08/2022, Additional history exists Falls Risk Assessment 01/11/2026 01/11/2025 Hypertension/CHF/CAD Annual BMP Blood Test 01/11/2026 01/11/2025, 06/27/2024, 03/21/2024, Additional history exists DTaP,Tdap,and Td Vaccines (4 - Td or Tdap) 11/08/2028 11/08/2018, 10/23/2009, 10/18/2007 Pneumococcal Vaccine: 50+ Years Completed 07/12/2015, 10/23/2009, 10/18/2007, Additional history exists Zoster Vaccines Completed 09/12/2021, 03/15, 11/04/2007 HIB Vaccines Aged Out No longer eligi ble based on patient's age to complete this topic HPV Vaccines Aged Out No longer eligi ble based on patient's age to complete this topic Hepatitis A Vaccines Aged Out No long er eligible based on patient's age to complete this topic Hepatitis B Vaccines Aged Out No long er eligible based on patient's age to complete this topic IPV Vaccines Aged Out No longer eligi ble based on patient's age to complete this topic MMR Vaccines Aged Out No longer eligi ble based on patient's age to complete this topic Meningococcal ACWY Vaccine Aged Out N o longer eligible based on patient's age to complete this topic Meningococcal B Vaccine Aged Out No l onger eligible based on patient's age to complete this topic RSV Immunization Patients Under 20 months Aged Out No longer eligible based on patient's age to complete this topic Varicella Vaccines Aged Out No longer eligible based on patient's age to complete this topic Procedures Procedure Name Priority Date/Time Associated Diagnosis Comments TISSUE EXAM Routine 01/11/2025 12:48 PM EDT Bladder neck contracture Urethral stricture Prostatic hemorrhage TH AN LMA(NO CHARGE) Routine 01/11/2025 12:34 PM EDT WA TRANSURETHRAL INCISION OF PROSTATE 01/11/2025 12:21 PM EDT Bladder neck contracture Prostatic hemorrhage Other stricture of overlapping sites of urethra in 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 Case Notes C-ARM,COOK BLUE DILATOR/GUAMAN HOT KNIFE( PREF CARD) WA DILATION URETHRAL STRICTURE BY PASSAGE OF SOUND/DILATOR MALE INITIAL 01/11/2025 12:21 PM EDT Bladder neck contracture Prostatic hemorrhage Other stricture of overlapping sites of urethra in 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 - Benign prostatic glands with associated chronic inflammation. - Immunohistochemical studies were performed to assess the glands in the soft tissue beneath the urothelium and to rule out the possibility of prostatic carcinoma. The results are as follows: NKX3.1: Glandular epithelial cells are immunoreactive. PAX8: Glandular epithelial cells are negative. PIN-4 (AMACR, p63 andhigh molecular weight cytokeratin): Weak staining with AMACR is noted in occasional glands; most glands exhibit an associated basal cell layer. Interpretation: The expression of NKX3.1 and absence of PAX8 supports interpretation of the glands in the submucosa as prostatic glands. Most of the glands show an associated basal cell layer (p63 and high molecular weight cytokeratin). A few dilated, cytologically bland glands lack associated basal cells. The combined morphologic and immunohistochemical findings are not considered diagnostic of carcinoma and the glands may represent an area of atrophic changes. 4:[address] [facility] Gross Description A. Urinary Bladder, neck biopsy: Labeled bladder n bladder . Received in formalin, with Telfa, are four soft, cochran-red, focally cauterized tissue fragments ranging from 0.25 cm to 0.4 cm in greatest diameter, which are wrapped in paper and submitted in toto in one cassette, four pieces, multiple levels. TS 4:[address] [facility] Disclaimer NOTE: The immunohistochemical tests and in situ hybridization tests were developed and their performance characteristics were determined by [facility]. They have not been cleared or approved by the U.S. Food and Drug Administration. The FDA has determined that such clearance or approval is not necessary. These tests are used for clinical purposes. They should not be regarded as investigational or for research. This laboratory is certified under the Clinical Laboratory Improvement Amendments of 1988 (CLIA) as qualified to perform high complexity clinical laboratory testing. (controls appropriate) Unless otherwise specified, all tissue is 10% NB formalin fixed and paraffin embedded. 4:[address] [facility] Tissue Urinary bladder structure / Unknown 01/11/2025 12:48 PM EDT 01/11/2025 2:46 PM EDT us Ibrahima Becerra MD LAB PATHOLOGY ORDERABLES Final R esult [facility] [address] [place] [address], * TH AN LMA(NO CHARGE) (01/11/2025 12:34 PM EDT) Narrative Kenan Arriaga SRNA - 01/11/2025 12:34 PM EDT JUAN MANUEL Styles 01/11/2025 12:35 PM General Information and Staff Patient location during procedure: OR Anesthesiologist: Skyler Villatoro MD Other anesthesia staff: JUAN MANUEL Styles Performed: other anesthesia staff Performed by: JUAN MANUEL Styles Authorized by: Skyler Villatoro MD Intubation Urgency: elective Final Airway Details Number of attempts at approach: 1 LMA Size: 5 LMA Type: Unique LMA Seal Pressure: Final airway type: LMA Indications and Patient Condition Indications for airway management: anesthesia Spontaneous Ventilation: absent Sedation level: Yes Preoxygenated: yes Soft Tissue Damage: No Dentition Unchanged: Yes Patient position: neutral MILS maintained throughout Mask difficulty assessment: 0 - not attempted Skyler Villatoro MD ANESTHESIA ORDERABLES Final Re sult * (ABNORMAL) CBC auto differential (01/11/2025 9:52 AM EDT) WBC 7.7 4.8 - 10.8 K/mcL LAB HEMETOLOGY METHOD 01/11/2025 10:01 AM [facility] RBC 4.90 4.50 - 5.50 M/mcL LAB HEMETOLOGY METHOD 01/11/2025 10:01 AM [facility] Hemoglobin 14.2 13.5 - 17.5 g/dL LAB HEMETOLOGY METHOD 01/11/2025 10:01 AM [facility] Hematocrit 44.2 42.0 - 54.0 % LAB HEMETOLOGY METHOD 01/11/2025 10:01 AM [facility] MCV 89.5 79.0 - 98.0 FL LAB HEMETOLOGY METHOD 01/11/2025 10:01 AM [facility] MCH 28.7 27.0 - 32.0 pcg LAB HEMETOLOGY METHOD 01/11/2025 10:01 AM [facility] MCHC 32.1 32.0 - 37.0 g/dL LAB HEMETOLOGY METHOD 01/11/2025 10:01 AM [facility] RDW 15.2(H) 11.0 - 15.0 % LAB HEMETOLOGY METHOD 01/11/2025 10:01 AM [facility] Platelets 225 130 - 400 K/mcL LAB HEMETOLOGY METHOD 01/11/2025 10:01 AM [facility] MPV 9.5 7.0 - 11.0 FL LAB HEMETOLOGY METHOD 01/11/2025 10:01 AM [facility] NRBC 0.0 <1.0 % LAB HEMETOLOGY METHOD 01/11/2025 10:01 AM [facility] NRBC Absolute 0.00 <0.10 K/mcL LAB HEMETOLOGY METHOD 01/11/2025 10:01 AM [facility] Neutrophils Relative 62.0 % LAB HEMETOLOGY METHOD 01/11/2025 10:01 AM [facility] Lymphocytes Relative 25.6 % LAB HEMETOLOGY METHOD 01/11/2025 10:01 AM [facility] Monocytes Relative 8.2 % LAB HEMETOLOGY METHOD 01/11/2025 10:01 AM [facility] Eosinophils Relative 3.4 % LAB HEMETOLOGY METHOD 01/11/2025 10:01 AM [facility] Basophils Relative 0.4 % LAB HEMETOLOGY METHOD 01/11/2025 10:01 AM [facility] Immature Granulocytes Relative 0.4 % LAB HEMETOLOGY METHOD 01/11/2025 10:01 AM [facility] Neutrophils Absolute 4.75 1.50 - 7.00 K/mcL LAB HEMETOLOGY METHOD 01/11/2025 10:01 AM [facility] Lymphocytes Absolute 1.96 1.00 - 5.00 K/mcL LAB HEMETOLOGY METHOD 01/11/2025 10:01 AM [facility] Monocytes Absolute 0.63 0.20 - 1.00 K/mcL LAB HEMETOLOGY METHOD 01/11/2025 10:[address] [facility] Eosinophils Absolute 0.26 0.00 - 0.50 K/mcL LAB HEMETOLOGY METHOD 01/11/2025 10:[address] [facility] Basophils Absolute 0.03 0.00 - 0.20 K/mcL LAB HEMETOLOGY METHOD 01/11/2025 10:[address] [facility] Immature Granulocytes Absolute 0.03 0.00 - 0.03 K/mcL LAB HEMETOLOGY METHOD 01/11/2025 10:[address] [facility] Blood Venous blood specimen / Unknown Venipuncture / Unknown 01/11/2025 9:52 AM EDT 01/11/2025 9:55 AM EDT us Ibrahima Becerra MD LAB BLOOD ORDERABLES Final Resul t [facility] [address] [place] [address], * (ABNORMAL) Basic metabolic panel (01/11/2025 9:52 AM EDT) Sodium 138 133 - 145 mmol/L LAB CHEMISTRY METHOD 01/11/2025 10:23 AM [facility] Potassium 4.2 3.5 - 5.5 mmol/L LAB CHEMISTRY METHOD 01/11/2025 10:23 AM [facility] Chloride 105 96 - 110 mmol/L LAB CHEMISTRY METHOD 01/11/2025 10:23 AM [facility] CO2 28 21 - 32 mmol/L LAB CHEMISTRY METHOD 01/11/2025 10:23 AM [facility] Anion Gap 5 3 - 11 LAB CHEMISTRY METHOD 01/11/2025 10:23 AM [facility] Glucose 109(H) 70 - 100 mg/dL LAB CHEMISTRY METHOD 01/11/2025 10:[address] [facility] BUN 17 5 - 25 mg/dL LAB CHEMISTRY METHOD 01/11/2025 10:[address] [facility] Creatinine 1.11 0.70 - 1.30 mg/dL LAB CHEMISTRY METHOD 01/11/2025 10:[address] [facility] eGFR 66 >=60 mL/min/1. 73m2 LAB CHEMISTRY METHOD 01/11/2025 10:[address] [facility] Comment:Calculation based on the Chronic Kidney Disease Epidemiology Collaboration (CKD-EPI) equation refit without adjustment for race. BUN/Creatinine Ratio 15.3 LAB CHEMISTRY METHOD 01/11/2025 10:[address] [facility] Calcium 9.6 8.5 - 10.5 mg/dL LAB CHEMISTRY METHOD 01/11/2025 10:[address] [facility] Blood Venous blood specimen / Unknown Venipuncture / Unknown 01/11/2025 9:52 AM EDT 01/11/2025 9:56 AM EDT us Ibrahima Becerra MD LAB BLOOD ORDERABLES Final Resul t [facility] [address] [place] [address], from Last 3 Months Insurance [facility] Care Teams Veterans Service Officer Relationship Specialty Start Date End Date Lorne Roberts MD [address] [place] [phone] PCP - General Internal Medicine 09/30/17
--- OUTSIDE RECORDS SUMMARY | 2025-02-22 18:27 | XMS_ITS | Encounter Summary ---
Author Organization [facility] Address [address] [place] [address] [place] [address] Phone Care Team Providers Care Service Developer Name Role Phone Jason Deal PA-C Primary Care Provider [phone] Rafael Reaves MD Unavailable Encounter Details Date Type Department Care Team (Late st Contact Info) Description 02/22/2025 Orders Only [facility] [place] [facility] [address] [place] [address] Provider, MD Gaetano [address] [place] [id number] Social History Tobacco Use Types Packs/Day Years [...] st Contact Info) Description 02/15/2025 Procedure Pass [facility], Ct Scan - [address] [address] 03/07/2025 7:00 AM EDT Office Visit [facility] 22 [facility] 3rd Floor, [address] [place] [address] Carlos Nixon DO 22 [facility] [address] [place] [address] 03/18/2025 12:00 PM EDT Appointment [facility], X-Ray - [address] [address] Jason Deal PA-C [address] [place] [address] 03/18/2025 2:00 PM EDT Appointment [facility], Ct Scan - [address] [address] Jason Deal PA-C [address] [place] [phone] [email or web address] 04/04/2025 2:30 PM EDT Procedure visit [facility] [address] [place] [phone] Ctay Cortez MD [address] [place] [address] [facility], [place], [place] [phone] [email or web address] 07/05/2025 7:20 AM EST Office Visit [facility] Internal Medicine [address] [place] [address] Jason Dela PA-C [address] [place] [address] 07/10/2025 12:30 PM EST Office Visit [facility] [address] [place] [address] [phone] Elizabeth Hoffman MD [address] [place] [address] [facility] [place] [address] documented as of this encounter Procedures Procedure Name Priority Date/Time Associated Diagnosis Comments OUTSIDE US VEINS EXTREMITY UPPER REPORT ONLY Routine 02/22/2025 5:54 PM EDT documented in this encounter Results * Outside Veins Extremity Upper Report Only (02/22/2025 5:54 PM EDT) us Historical Provider MD ALONSO US EXTREMITY Final Re sult documented in this encounter Visit Diagnoses Not on filedocumented in this encounter Additional Health Concerns Assessment Noted Time PHQ-2 Depression Total Score: 2 06/21/19 25 7:17 AM EST documented as of this encounter Care Teams Service Developer Relationship Specialty Start Date End Date Jason Deal PA-C [address] [place] [address] [email or web address] PCP - General Physician Talent Engineer 04/04/24 Rafael Reaves MD [address] [place] [address] [email or web address] Insurance Assigned Provider 09/18/24 documented as of this encounter Additional Source Comments The information contained in this document represents components of the legal health record. It is not the complete legal health record.[facility]
--- OUTSIDE RECORDS SUMMARY | 2025-02-22 18:27 | XMS_ITS | Encounter Summary ---
Author Organization [facility] Address [address] [place] [address] Phone Care Team Providers Care Residential Support Worker Name Role Phone Beth Vanegas NP Primary Care Provider [phone] Rafael Reaves MD Primary Care Provider Jason Deal PA-C Primary Care Provider [phone] Rafael Reaves MD Unavailable Encounter Details Date Type Department Care Team (Late st Contact Info) Description 12/20/2021 Procedure Pass [place] Admitting Dept - [facility] Department [address] [place] [address] Social History Tobacco Use Types Packs/Day Years Used Date Smoking Tobacco: Never Smokeless Tobacco: Never Alcohol Use Standard Drinks/Week Comments No 0 (1 standard drink = 0.6 oz pur e alcohol) Sex and Gender Information Value Date Recorded Sex Assigned at Male 11/08/2020 8:04 AM EDT Legal Sex Male 10:11 PM EDT Gender Identity Male 11/08/2020 8:04 AM EDT Sexual Orientation Straight 11/08/2020 8: 04 AM EDT documented as of this encounter Plan of Treatment Upcoming Encounters Date Type Department Care Team (Late st Contact Info) Description 02/15/2025 Procedure Pass [facility], Ct Scan - [facility] [address] [place] [address] 03/07/2025 7:00 AM EDT Office Visit [facility] 22 [facility] 3rd Floor, [address] [place] [address] Carlos Nixon DO 22 [facility] [address] [place] [address] 03/18/2025 12:00 PM EDT Appointment [facility], X-Ray - [address] [address] Jason Deal PA-C [address] [place] [address] 03/18/2025 2:00 PM EDT Appointment [facility], Ct Scan - [address] [address] Jason Deal PA-C [address] [place] [address] 04/04/2025 2:30 PM EDT Procedure visit [facility] [address] [place] [address] Caty Cortez MD [address] [place] [address] Orth[facility], [place], [place] [phone] [email or web address] 07/05/2025 7:20 AM EST Office Visit [facility] Internal Medicine [address] [place] [phone] Jason Deal PA-C [address] [place] [phone] 07/10/2025 12:30 PM EST Office Visit [facility] [address] [place] [phone] Elizabeth Hoffman MD [address] [place] [address] Orthopedics & Sports Medicine, [facility] [place] [address] documented as of this encounter Visit Diagnoses Not on filedocumented in this encounter Additional Health Concerns Assessment Noted Time PHQ-2 Depression Total Score: 0 09/13/19 22 8:26 AM EDT documented as of this encounter Care Teams Residential Support Worker Relationship Specialty Start Date End Date Beth Vanegas PUBLIC ADDRESS TECHNICIAN PCP - General Family Medicine 06/20/20 08/18/23 Rafael Reaves MD [address] [place] [address] PCP - General Internal Medicine 08/19/23 04/03/24 Jason Deal PA-C [address] [place] [address] PCP - General Physician Director Transition 04/04/24 Rafael Reaves MD [address] [place] [phone] Insurance Assigned Provider 09/18/24 documented as of this encounter Additional Source Comments The information contained in this document represents components of the legal health record. It is not the complete legal health record.[facility]
--- OUTSIDE RECORDS SUMMARY | 2025-02-22 18:27 | XMS_ITS | Encounter Summary ---
Author Organization [facility] Address [address] [place] [id number] Phone Care Team Providers Care Teacher Lip Reading Name Role Phone Beth Vanegas NP Primary Care Provider [phone] Rafael Reaves MD Primary Care Provider [phone] Jason Deal PA-C Primary Care Provider [phone] Rafael Reaves MD Unavailable Encounter Details Date Type Department Care Team (Late st Contact Info) Description 03/10/2023 Procedure Pass [place] Admitting Dept - Virtual Department [address] [place] [address] Social History Tobacco Use Types Packs/Day Years Used Date Smoking Tobacco: Never Smokeless Tobacco: Never Alcohol Use Standard Drinks/Week Comments Yes 0 (1 standard drink = 0.6 oz pure alcohol) 1 drink when out to dinner only, every other month or so Child or Family Care Answer Date Record ed Do you have problems with on e of the following making it difficult for you to work, study, or receive health care? No 09/11/2022 Education Answer Date Recorded Are you interested in help w ith more adult education (for example, completing high school, GED, job training, learning the [place] language, technical skills, or developing parenting skills)? [...] st Contact Info) Description 02/15/2025 Procedure Pass [facility], Ct Scan - [address] [address] 03/07/2025 7:00 AM EDT Office Visit [facility] [address] [place] [address] [address] Floor, [address] [place] [address] Carlos Nixon DO [facility] [address] [place] [id number] 03/18/2025 12:00 PM EDT Appointment [facility], X-Ray - [address] [address] Jason Deal PA-C [address] [place] [address] [email or web address] 03/18/2025 2:00 PM EDT Appointment [facility], Ct Scan - [facility] [address] [place] [address] Jason Deal PA-C [address] [place] [address] 04/04/2025 2:30 PM EDT Procedure visit [facility] [address] [place] [id number] Caty Cortez MD [address] [place] [address] Orthopedics & Sports Medicine, [place], [place] [phone] [email or web address] 07/05/2025 7:20 AM EST Office Visit [facility] Internal Medicine [address] [place] [address] [phone] Jason Deal PA-C [address] [place] [address] [phone] 07/10/2025 12:30 PM EST Office Visit [facility] Medicine [address] [place] [address] [phone] Elizabeth Hoffman MD [address] [place] [address] Orthopedics & Sports Medicine, [place] [address] documented as of this encounter Visit Diagnoses Not on filedocumented in this encounter Additional Health Concerns Assessment Noted Time PHQ-2 Depression Total Score: 0 09/17/19 7:01 PM EDT documented as of this encounter Care Teams Teacher Lip Reading Relationship Specialty Start Date End Date Beth Vanegas NP [email or web address] PCP - General Family Medicine 06/20/20 08/18/23 Rafael Reaves MD [address] [place] [address] [email or web address] PCP - General Internal Medicine 08/19/23 04/03/24 Jason Deal PA-C [address] [place] [address] [email or web address] PCP - General Physician Wholesale Account Executive 04/04/24 Rafael Reaves MD [address] [place] [address] [email or web address] Insurance Assigned Provider 09/18/24 documented as of this encounter Additional Source Comments The information contained in this document represents components of the legal health record. It is not the complete legal health record.[facility]
--- OUTSIDE RECORDS SUMMARY | 2025-02-22 18:27 | XMS_ITS | Clinical Summary ---
Author Organization [facility] Address [address] [place] [phone] Phone Care Team Providers Care Milling Machine Operator Name Role Phone Jason Deal PA-C Primary Care Provider [phone] Rafael Reaves MD Unavailable Allergies Active Allergy Reactions Criticality Noted Date Comments Cephalexin Unknown 06/21/2024 Levofloxacin Diarrhea,Nausea and/or Vomiting Penicillins Rash Low 05/14/2017 Medications aspirin 81 mg chewable tablet Take 1 tablet (81 mg total) by mouth daily. 90 tablet 3 021 Active glucosamine/msm/c hondroitin A (GLUCOSAMINE [id number] N) 400-200-333 mg TabIndications:3 tabs daily Take 3 tablets by mouth daily. Indications: 3 tabs daily 90 each 3 021 Active clotrimazole-beta methasone (LOTRISONE) cream Apply 1 application topically 2 (two) times a day as needed. APPLY TO AFFECTED AREA 021 Active acetaminophen (TYLENOL) 325 mg tablet Take 1-2 tablets (325-650 mg total) by mouth every 6 (six) hours as needed (mild - moderate pain). 023 Active atenolol (TENORMIN) 50 mg tabletIndications :Essential hypertension TAKE 1 TABLET DAILY 90 tablet 3 025 Active nitroglycerin (NITROSTAT) 0.[address] 1 tablet (0.4 mg total) under the tongue every 5 (five) minutes as needed for chest pain. 15 tablet 2 025 Active lisinopril (PRINIVIL,ZESTRIL ) 40 MG tabletIndications :Essential hypertension Take 1 tablet (40 mg total) by mouth every morning. 90 tablet 3 025 Active omeprazole (PRILOSEC) 40 MG capsuleIndication s:Gastroesophagea l reflux disease without esophagitis TAKE 1 CAPSULE TWICE DAILY 180 capsule 3 025 Active atorvastatin (LIPITOR) 80 MG tabletIndications :Mixed hyperlipidemia TAKE 1 TABLET ONCE DAILY 90 tablet 3 025 Active hydrocortisone 2.5 % cream Apply topically 2 (two) times a day. 28 g 1 025 Active atorvastatin (LIPITOR) 80 MG tabletIndications :Mixed hyperlipidemia take 1 tablet once daily 90 tablet 3 024 2024 Discontinued Hospital, Clinic, or Other Facility Administered Medication Ordered Dose Route Frequency Start Date End Date Status triamcinolone acetonide (KENALOG-40) 40 mg/mL injection 20 mg 20 mg See Adm Inst Once 02/16/2025 02/16/2025 Ended lidocaine (XYLOCAINE) 1% injection 0.5 mL 0.5 mL See Adm Inst Once 02/16/2025 02/16/2025 Ended Active Problems Problem Noted Date Diagnosed Date Unexplained weight loss 02/15/2025 Assessment & Plan (02/15/2025 9:21 AM EDT): Patient with a history of prostate cancer with most recent PSA 0.04. Over the course of the past 6 months after losing his he has had an unexplained weight loss of 25lbs. Patient denies any blood in stool, cough or fatigue. He has a family history of cancer . - We will obtain a CT abdomen and pelvis given his history of prostate cancer concern for metastatic disease secondary to the unexplained weight loss. -We will also obtain a chest x-ray -We will obtain a CBC with differential to rule out leukemia, TSH and a fit test Needs flu shot 02/15/2025 Assessment & Plan (02/15/2025 9:22 AM EDT): Flu vaccine given Prediabetes 06/21/2024 Assessment & Plan (02/15/2025 9:17 AM EDT): Patient with a history of prediabetes with most recent hgb A1c was noted 5.6. He will continue diet and exercise. Assessment & Plan (10/03/2024 7:16 AM EDT): Again this is all diet related which I thoroughly explained to the patient and his family Assessment & Plan (09/19/2024 9:17 AM EDT): Patient noted to have a hemoglobin A1c of 6.0 back in June. He is diet and exercise controlled. We will repeat at his follow-up as it will be 3 months at that time. S/P umbilical hernia repair, follow-up exam 03/15 Hearing aid worn 09/17/2022 Renal insufficiency 09/06/2020 Assessment & Plan (10/20/2023 1:47 PM EDT): Assess kidney function in the setting of possible obstructive uropathy history. Total urinary incontinence 07/30/2018 Assessment & Plan (04/04/2024 12:53 PM EDT): Patient follows with Dr. Campbell Acute renal failure d/t procedure 05/14/2017 Arthralgia of both hands 05/14/2017 Atherosclerosis of [place] co ronary artery of [place] heart without angina pectoris 05/14/2017 Assessment & Plan (04/04/2024 12:54 PM EDT): Patient with a history of DE in the past and has not been following with a director web for quite some time. Continue aspirin 81 mg daily and atenolol 50 mg p.o. daily. 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 daily and lisinopril 40 mg p.o. daily. These medications will be continued Assessment & Plan (10/03/2024 7:16 AM EDT): Not adequately controlled I increased lisinopril to 40 Assessment & Plan (09/19/2024 9:17 AM EDT): Patient noted to have a slight elevated blood pressure today of 140/70 however he has been under a significant amount of stress since his recently passed about a month and a half ago. -Continue atenolol 50 mg p.o. daily and lisinopril 20 mg daily Assessment & Plan (04/04/2024 12:52 PM EDT): Well-controlled on atenolol 50 mg p.o. daily and lisinopril 20 mg p.o. daily Assessment & Plan (10/20/2023 1:45 PM EDT): Pressures well-controlled, will probably see him twice a year regarding the blood pressure. Currently taking atenolol and lisinopril will continue that as it is working well. If orthostatic please increase hydration. Check electrolytes kidney function just prior to the next visit which will be a wellness visit in March. Gastroesophageal reflux disease without esophagi tis 05/14/2017 Assessment & Plan (04/04/2024 12:53 PM EDT): Continue Prilosec 40 mg p.o. daily History of prostate cancer 05/14/2017 Assessment & Plan (04/04/2024 12:52 PM EDT): Patient with a history of prostate cancer who underwent seed placement years ago and continues to follow with Dr. Campbell Mixed hyperlipidemia 05/14/2017 Assessment & Plan (02/15/2025 9:21 AM EDT): Patient with a history of hyperlipidemia on lipitor 80mg daily. His current LDL is 80 and his triglycerides are noted at 111. Given his past medical history he is not noted to be at goal less than 70 on his LDL. Patient does have an upcoming appointment with his director web on 03/07. I did explain to the patient that his director web may require him to be on an additional medication to achieve this goal. He is also to continue his diet and exercise. Assessment & Plan (10/03/2024 7:16 AM EDT): A1c should be less than 7 and LDL less than 70 mg/dL given the guidelines. LDL is still too high but he is following a poor diet which we went over in detail today Assessment & Plan (09/19/2024 9:17 AM EDT): Last lipid panel in June was well within normal limits. Patient is to continue Lipitor 80 mg p.o. daily we will repeat lipid panel at his next office visit. Assessment & Plan (04/04/2024 12:53 PM EDT): Recent lab work at the beginning of this month showed an LDL of 84 continue atorvastatin 80 mg p.o. daily Assessment & Plan (10/20/2023 1:46 PM EDT): Continue Lipitor 80, check lipid profile and liver enzymes. Resolved Problems Problem Noted Date Diagnosed Date Resolved Date Chest pain 09/19/2024 02/15/2025 Assessment & Plan (10/03/2024 7:16 AM EDT): I do not get the sense he is having active angina he is getting a stress test which is a nuclear stress test we will call him in earlier if his test is abnormal Assessment & Plan (09/19/2024 9:17 AM EDT): Patient mentions that he has been having intermittent left-sided chest pressure with associated dizziness. He denies any radiation of pain down the arm or to the jaw or to the back. He denies any shortness of breath with these episodes. He describes the episodes as similar to that of when he had his previous heart attack about 30 years ago. Patient mentions that it is mainly upon exertion and decreases at rest which constitutes the symptoms as more angina EKG obtained here in the office which shows sinus rhythm without ST-T wave elevations or depressions. Heart rate noted at 59--this was discussed with Dr. Reaves -I will obtain an urgent [facility] cardiology referral -Urgent stress test -Echocardiogram -Nitroglycerin sublingual tablets given 0.4 mg p.o. every 5 minutes as needed -Patient was advised that if he develops chest pressure to call 911 and be transferred to the emergency department for further evaluation. Patient acknowledges and understands Left arm numbness 06/21/2024 02/15/2025 Hordeolum externum of right upper eyelid 06/21/2024 02/15/2025 Elevated fasting blood sugar 09/17/2022 02/15/2025 Assessment & Plan (10/20/2023 1:46 PM EDT): Last A1c was 5.5%, will obtain another 1 and if it is below 5.7%. Stop assessing it. Self-catheterizes urinary bladder 05/14/2017 09/17/2022 Encounters Date Type Department Care Team Description 02/22/2025 Orders Only [facility] Internal Medicine [address] [place] [address] Provider, MD Gaetano 02/20/2025 Telephone [facility] [address] [place] [address] Jason Deal PA-C Results 02/16/2025 2:17 PM EDT - 02/16/2025 11:59 PM EDT Hospital Encounter [facility] [address] [place] [address] Jason Deal PA-C Discharge Disposition: Home or Self Care 02/16/2025 1:00 PM EDT Office Visit [facility] [address] [place] [address] Elizabeth Hoffman MD Numbness and tingling in left hand (Primary Dx) 02/15/2025 9:48 AM EDT - 02/15/2025 11:59 PM EDT Hospital Encounter [facility] [address] [place] [address] Jason Deal PA-C Discharge Disposition: Home or Self Care 02/15/2025 8:40 AM EDT Office Visit [facility] [address] [place] [address] Jason Deal PA-C Mixed hyperlipidemia (Primary Dx); Needs flu shot; Unexplained weight loss; Prediabetes; Essential hypertension 02/09/2025 8:50 AM EDT - 02/09/2025 11:59 PM EDT Hospital Encounter [facility] [address] [place] [address] Jason Deal PA-C Discharge Disposition: Home or Self Care 02/09/2025 Transcribe Orders [facility] [address] [place] [address] Ibrahima Becerra MD Personal history of malignant neoplasm of prostate (Primary Dx) 02/09/2025 Telephone [facility] [address] [place] [address] Jason Deal PA-C 02/01/2025 Telephone [facility] [address] [place] [address] Christine Hernandez RN Medication Question 01/27/2025 Refill [facility] [address] [place] [address] Rafael Reaves MD Medication Refill from Last 3 Months Immunizations Immunization Administration Dates Next Due COVID-19 (Pre-04/06) Pfizer Vaccine, mRNA, PF 07/10/2020,06/19/2020 INFLUENZA, SPLIT VIRUS, TRIV ALENT W/ PRESERVATIVE IM 04/30/2016,04/18/2015,02/20/2012 Influenza High-Dose Quadriva lent Preservative Free IM 03/23/2023,04/08/2022,03/01/2021,02/24 Influenza High-Dose Trivalen t Preservative Free IM 02/15/2025,03/18/2024,03/19/2019,03/07,03/05/2017,03/09/2014 Influenza, Unspecified Formulation 10/23/2009 Pneumococcal conjugate PCV13 07/12/2015 Pneumococcal polysaccharide PPSV23 10/23/2009, Td, unspecified formulation 10/23/2009 Tdap 11/08/2018 Zoster live 11/04/2007 Zoster recombinant 09/12/2021,03/25/2018 Family History Medical History Relation Comments No Known Problems Daughter 2 Heart disease Father Liver cancer Father Dementia Mother Stroke Mother No Known Problems Son 4 Relation Status Comments Daughter 1 Alive Daughter 2 Alive Father (Age 82) Mother (Age 87) Son 1 Alive Son 2 Alive Son 3 Alive Son 4 Alive Social History Tobacco Use Types Packs/Day Years [...] Orientation Straight 11/08/2020 8: 04 AM EDT Last Filed Vital Signs Vital Sign Reading Time Taken Comments Blood Pressure 134/78 02/15/2025 8:33 AM EDT Pulse 63 02/15/2025 8:33 AM EDT Temperature 36.2 C (97.1 F) 09/19/2024 7:59 AM EDT Respiratory Rate 16 02/15/2025 8:33 AM EDT Oxygen Saturation 98% 02/15/2025 8:33 AM EDT Inhaled Oxygen Concentration - - Weight 81.4 kg (179 lb 6.4 oz) 02/15/2025 8:33 A M EDT Height 172 cm (5' 7.72 ) 02/15/2025 8:33 AM EDT Body Mass Index 27.51 02/15/2025 8:33 AM EDT Plan of Treatment Upcoming Encounters Date Type Department Care Team (Late st Contact Info) Description 02/15/2025 Procedure Pass [facility], Ct Scan - [facility] [address] [place] [address] 03/07/2025 7:00 AM EDT Office Visit [facility] [address], [address] [place] [address] Carlos Sharpe DO [address] [facility] [address] [place] [address] 03/18/2025 12:00 PM EDT Appointment [facility], X-Ray - [address] [address] Jason Deal PA-C [address] [place] [phone] 03/18/2025 2:00 PM EDT Appointment [facility] Ct Scan - [address] [address] Jason Deal PA-C [address] [place] [email or web address] 04/04/2025 2:30 PM EDT Procedure visit [facility] [address] [place] [address] Caty Cortez MD [address] [place] [address] Orthopedics & Sports Medicine, [place], [place] [phone] [email or web address] 07/05/2025 7:20 AM EST Office Visit [facility] Internal Medicine [address] [place] [address] Jason Deal PA-C [address] [place] [address] [phone] 07/10/2025 12:30 PM EST Office Visit [facility] [address] [place] [address] [phone] Elizabeth Hoffman MD [address] [place] [address] [facility], [place], [place] [phone] [email or web address] Health Maintenance Due Date Last Done Comments RSV VACCINE (1 - 1-dose 75+ series) 2017 COVID-19 VACCINE ( season) 2025 03/18/2024, 03/23/2023, 04/21/2022, Additional history exists DEPRESSION SCREENING 06/21/2025 06/21/2024 BLOOD PRESSURE 08/15/2025 02/15/2025 CREATININE LEVEL 02/09/2026 02/09/2025, , 03/21/2024, Additional history exists POTASSIUM LEVEL 02/09/2026 02/09/2025, 06/15, 03/21/2024, Additional history exists Adult Td,Tdap Booster 11/08/2028 11/08/2018, 010 PNEUMOCOCCAL VACCINES (50+ years) Completed 07/12/2015, 10/23/2009, 05/10/2007 ZOSTER VACCINES Completed 09/12/2021, 03/15, 11/04/2007 INFLUENZA VACCINE Completed 02/15/2025, , 03/23/2023, Additional history exists HEPATITIS A VACCINES Aged Out No long er eligible based on patient's age to complete this topic HIB VACCINES Aged Out No longer eligi ble based on patient's age to complete this topic MENINGOCOCCAL VACCINES (ACWY) Aged Out No longer eligible based on patient's age to complete this topic MENINGOCOCCAL VACCINES (B) Aged Out N o longer eligible based on patient's age to complete this topic Medical Devices Implanted Type Area Ski Lift Operator Device Identifier Shelf Expiration Date Model / Serial / Lot Mesh Surgical 15cm 8 Hernia Prolene Polypropylene Nonabsorbable Repair Bx/6ea - [id number] Implanted:Qty: 1 on 03/10/2023 by Katia Chandra MD at [facility] STANDARD N/A: Umbilical ISABELLAJ ETHICON / DIVISION OF J [id number] 03/14/2027 PMII / / SLBHAQ Procedures Procedure Name Priority Date/Time Associated Diagnosis Comments OUTSIDE US VEINS EXTREMITY UPPER REPORT ONLY Routine 02/22/2025 5:54 PM EDT HC BLOOD OCCULT FECAL HGB DETER IA QUAL FECES 1-3 Routine 02/16/2025 7:00 AM EDT Unexplained weight loss CBC AND DIFFERENTIAL Routine 02/15/2025 9:47 AM EDT Unexplained weight loss TSH WITH REFLEX Routine 02/15/2025 9:47 AM EDT Unexplained weight loss PSA DIAGNOSTIC (MONITORING) Routine 02/09/2025 8:45 AM EDT Personal history of malignant neoplasm of prostate COMPREHENSIVE METABOLIC PANEL Routine 02/09/2025 8:45 AM EDT Hyperlipidemia, unspecified hyperlipidemia type LIPID PANEL Routine 02/09/2025 8:45 AM EDT Mixed hyperlipidemia HEMOGLOBIN A1C Routine 02/09/2025 8:45 AM EDT Essential hypertension Mixed hyperlipidemia from Last 3 Months Results * Outside US Veins Extremity Upper Report Only (02/22/2025 5:54 PM EDT) us Historical Provider MD ALNOSO US EXTREMITY Final Re sult * Fecal immunochemical test x1 (FIT) (02/16/2025 7:00 AM EDT) Immuno Fecal Occult Negative Negative [facility] Stool (Stool) 02/16/2025 7:0 0 AM EDT 02/16/2025 2:22 PM EDT Jason Deal PA-C BODY FLUIDS AND STOOLS ORDERA BLES Final Result [facility] [address] [place] [address] * TSH with reflex (02/15/2025 9:47 AM EDT) TSH 3.73 0.27 - 4.20 uIU/mL [facility] Blood 02/15/2025 9:47 AM EDT 02/15/2025 9:53 AM EDT us Jason Deal PA-C LAB BLOOD ORDERABLES Final Re sult [facility] [address] [place] [address] * (ABNORMAL) CBC and differential (02/15/2025 9:47 AM EDT) WBC 7.03 4.00 - 11.00 K/uL [facility] RBC 4.89 4.50 - 5.90 M/uL [facility] HGB 14.2 13.5 - 17.5 g/dL [facility] HCT 44.2 41.0 - 53.0 % [facility] PLT 259 150 - 450 K/uL [facility] MCV 90.4 80.0 - 100.0 fL [facility] MCH 29.0 27.0 - 31.0 pg [facility] MCHC 32.1 32.0 - 36.0 g/dL [facility] RDW 14.8(H) 11.5 - 14.5 % [facility] MPV 9.8 8.4 - 12.0 fL [facility] NRBC 0.00 0.00 /100 WBCs [facility] ABSOLUTE NRBC 0.00 0.00 K/uL [facility] DIFF METHOD Auto [facility] NEUTS 61.6 48.0 - 76.0 % [facility] LYMPHS 24.3 18.0 - 41.0 % [facility] MONOS 10.2 4.0 - 11.0 % [facility] EOS 3.1 0.0 - 5.0 % [facility] BASOS 0.4 0.0 - 1.5 % [facility] Granulocytes, immature (%) 0.4 0.0 - 0.9 % [facility] ABSOLUTE NEUTS 4.32 1.92 - 7.60 K/uL [facility] ABSOLUTE LYMPHS 1.71 0.72 - 4.10 K/uL [facility] ABSOLUTE MONOS 0.72 0.16 - 1.10 K/uL [facility] ABSOLUTE EOS 0.22 0.00 - 0.50 K/uL [facility] ABSOLUTE BASOS 0.03 0.00 - 0.15 K/uL [facility] Granulocytes, immature 0.03 0.00 - 0.09 K/uL [facility] Blood 02/15/2025 9:47 AM EDT 02/15/2025 9:53 AM EDT us Jason Deal PA-C LAB BLOOD ORDERABLES Final Re sult [address] [address] * (ABNORMAL) Comprehensive metabolic panel (02/09/2025 8:45 AM EDT) SODIUM 137 133 - 146 mmol/L [facility] POTASSIUM 4.4 3.3 - 5.1 mmol/L [facility] CHLORIDE 103 96 - 108 mmol/L [facility] CO2 25 21 - 35 mmol/L [facility] BUN 18 6 - 19 mg/dL [facility] CREATININE 1.00 0.5 - 1.5 mg/dL [facility] GLUCOSE 106(H) 70 - 99 mg/dL [facility] ALBUMIN 3.7(L) 3.9 - 4.8 g/dL [facility] TOTAL PROTEIN 6.8 6.5 - 8.0 g/dL [facility] CALCIUM 9.6 8.4 - 10.3 mg/dL [facility] ALKALINE PHOSPHATASE 68 39 - 117 U/L [facility] TOTAL BILIRUBIN 0.8 0.0 - 1.2 mg/dL [facility] AST 20 0 - 37 U/L [facility] ALT 11 0 - 40 U/L [facility] GLOBULIN 3.1 1 - 4.8 g/dL [facility] EGFR 75 >59 mL/min/1.7 3m2 [facility] Comment:Estimated glomerular filtration rate calculated using the CKD-EPI refit equation. ANION GAP 13 10 - 20 mmol/L [facility] Blood 02/09/2025 8:45 AM EDT 02/09/2025 8:50 AM EDT us Jason Deal PA-C LAB BLOOD ORDERABLES Final Re sult Performing Organization Address City/[facility]/ZIP Co de Phone Number [address] [address] * PSA diagnostic (monitoring) (02/09/2025 8:45 AM EDT) PSA 0.04 0 - 4.00 ng/mL [facility] Comment: Test Methodology Jorge [id number] Patient results determined by assays using different manufacturers or methods may not be comparable. Blood 02/09/2025 8:45 AM EDT 02/09/2025 8:50 AM EDT us Ibrahima Becerra MD LAB BLOOD ORDERABLES Final Res ult Performing Organization Address [facility]/ZIP Co de Phone Number [address] [address] * Hemoglobin A1c (02/09/2025 8:45 AM EDT) HEMOGLOBIN A1C 5.6 4.3 - 5.8 % [facility] Blood 02/09/2025 8:45 AM EDT 02/09/2025 8:50 AM EDT us Carlos Nixon DO LAB BLOOD ORDERABLES Final Re sult Performing Organization Address [facility]/ZIP Co de Phone Number [address] [address] * Lipid panel (02/09/2025 8:45 AM EDT) HDL 40 mg/dL [facility] Comment: Interpretation <40 mg/dL: Low HDL cholesterol (major risk factor for CHD) Greater than or equal to 60 mg/dL: High HDL cholesterol ( negative risk factor for CHD) HDL - cholesterol is affected by a number of factors, e.g. smoking, excerise, hormones, sex and age. CHOLESTEROL 142 0 - 240 mg/dL [facility] TRIGLYCERIDES 111 30 - 160 mg/dL [facility] LDL 80 50 - 129 mg/dL [facility] Comment: LDL levels in terms of risk for coronary heart disease: <100 mg/dL: Optimal 100-129 mg/dL: Near or above optimal 130-159 mg/dL: Borderline high 160-189 mg/dL: High >190 mg/dL: Very High CARDIAC RISK RATIO 3.6 3.4 - 5.0 [facility] Blood 02/09/2025 8:45 AM EDT 02/09/2025 8:50 AM EDT us Carlos Nixon DO LAB BLOOD ORDERABLES Final Re sult [facility] [address] [place] [address] from Last 3 Months Insurance MEDICARE PART A & B [place] MEDEX SUPPLEMENT MEDICARE PART A & B [employer] MED[employer] SUPPLEMENT MEDICARE PART A & B [employer] MED[employer] SUPPLEMENT MEDICARE PART A & B [employer] MED[employer] SUPPLEMENT MEDICARE PART A & B [employer] MED[employer] SUPPLEMENT MEDICARE PART A & B Member Subscriber Plan / Payer ( fective 2007-Present) Name:Francesco Denny Member ID:[id number] Relation to Subscriber:Self Name:Francesco Denny Subscriber ID:[id number] Payer ID:[id number] Group ID:Not on file Type:Medicare Address: [employer] [address] [address] [facility] MEDEX SUPPLEMENT MEDICARE PART A & B [employer] MEDEX SUPPLEMENT MEDICARE PART A & B [employer] MEDEX SUPPLEMENT MEDICARE PART A & B [employer] MEDEX SUPPLEMENT Advance Directives For more information, please contact: [phone] (9AM - 5PM [facility], Thursday-Thursday) * Full Code (Latest Code Status on File) Date Activated Date Inactivated Comments 03/10/2023 11:16 AM Question Answer Comments Code Status Confirmed With: Patient Care Teams Milling Machine Operator Relationship Specialty Start Date End Date Jason Deal PA-C [address] [place] [address] [email or web address] PCP - General Physician Fruit Grading Supervisor 04/04/24 Rafael Reaves MD [address] [place] [address] [email or web address] Insurance Assigned Provider 09/18/24 Additional Source Comments The information contained in this document represents components of the legal health record. It is not the complete legal health record.[facility]
== END 2025-02-22 15:37 | disposition home or self-care (01) ==
LOC: HO.US 15:36
PROVIDERS: PCP Physician Assistant Surgical; Visit Provider Physician Assistant
DX: R22.31 Localized swelling, mass and lump, right upper limb (principal)
CPT/HCPCS: 93971; 99202

== ENCOUNTER → 2025-02-22 15:50 | Outpatient (BNV) | payer MEDICARE, SELFPAY | PROVIDERS: PCP Physician Assistant Surgical; Visit Provider Radiology Diagnostic Radiology | DX: R22.31 Localized swelling, mass and lump, right upper limb (principal) | CPT/HCPCS: 93971 ==

== ENCOUNTER 2025-03-06 14:57 | Outpatient (REF) | payer MEDICARE, SELFPAY ==
--- OUTSIDE RECORDS SUMMARY | 2025-03-06 17:27 | XMS_ITS | Clinical Summary ---
Demographics Address [address] [place] [address] [place] [address] Home Phone Preferred Language Yakut Marital Status Unknown
== END 2025-03-06 14:58 | disposition home or self-care (01) ==
LOC: HO.US 14:57
PROVIDERS: PCP Physician Assistant Surgical; Visit Provider Physician Assistant Surgical
DX: I82.611 Acute embolism and thrombosis of superficial veins of right upper extremity (principal)
CPT/HCPCS: 93971

== ENCOUNTER → 2025-03-06 15:15 | Outpatient (BNV) | payer MEDICARE, SELFPAY | PROVIDERS: PCP Physician Assistant Surgical; Visit Provider Radiology Diagnostic Radiology | DX: I82.611 Acute embolism and thrombosis of superficial veins of right upper extremity (principal) | CPT/HCPCS: 93971 ==

== ENCOUNTER 2025-04-10 08:08 | Outpatient (AMB) | payer MEDICARE, SELFPAY ==
[2025-04-10 08:09] VITALS: BP 130/70; PULSE 62; TEMP 37; O2SAT 98; BMI 25.4
--- NOTE | 2025-04-10 08:09 | MHC.OFFWIV ---
Intake Vital Signs 04/10/25 08:09 Height 5 ft 10 in Weight 177 lb BMI 25.4 BP 130/70 Blood Pressure Location Lt brachial Position Sitting Pulse 62 Pulse Source Pulse Oximeter Temp 98.6 F Temp Source Oral Pulse Oximetry (%) 98 Oxygen Delivery Method Room Air Intake Visit Reasons: eo covid test may think he has strep as well Intake Note: Patient presents with c/o loss of voice, dry cough & chest congestion x6 days Patient Tobacco Use Status: Never used Tobacco Allergies levofloxacin Allergy (Unknown, Verified 04/10/25 08:14) nausea and vomiting penicillin V Allergy (Unknown, Verified 04/10/25 08:14) Unknown Do you need a note to return to daycare/school/sports/work: No HPI HPI Comments History of Present Illness Details 84 y/o Male patient who presents to the walk in clinic with c/o URI symptoms. Pt reports hoarseness and some throat irritation. Reports waking up last week with laryngitis. He has been taking Mucinex and Acetaminophen the whole week. Denies fevers, chills, nausea, vomiting, Headaches, Cough, CP, SOB or Dizziness. Reports feeling pressure on his chest - feeling like something is stuck in upper chest. He has been trying to clear throat constantly with no relief. Denies any recent contacts with Sick people. [facility] Medical History (Updated 04/10/25 @ 08:29 by Myah Stallings NP) Acute respiratory disease Acoustic neuroma GERD (gastroesophageal reflux disease) HTN (hypertension) Social History Alcohol intake: unknown Patient Tobacco Use Status: Never used Tobacco Review of Systems Const All systems reviewed & are unremarkable except as noted in HPI and below Physical Exam Vital Signs: Last Vital Signs Temp 98.6 F 04/10/25 08:09 Pulse 62 04/10/25 08:09 BP 130/70 04/10/25 08:09 Pulse Ox 98 04/10/25 08:09 Oxygen Delivery Method Room Air 04/10/25 08:09 BMI result Body Mass Index 25.4 Const General: no acute distress Nutritional Appearance: well nourished Orientation/consciousness: patient oriented x3 HEENT Head: Yes normocephalic Ears: TM abnormal bulging bilateral and with fluid behind the TM bilateral General nose exam: Normal external nose present Face and sinus: Yes sinuses nontender Mouth: moist mucous membranes and Abnormal oral and palatal mucosa present erythematous Throat: Yes uvula midline Resp Effort & Inspection: normal respiratory effort Auscultation: clear to auscultation bilaterally, no crackles, no rales, no rhonchi and no wheezes Cardio Heart sounds: S1 normal heart sound present and S2 normal heart sound present Neuro General: patient oriented x3, gait normal and moves all extremities Psych Speech and movement: Normal speech and movement present Assessment & Plan Assessment & Plan (1) Acute respiratory disease: Code(s): J06.9 - Acute upper respiratory infection, unspecified Plan: Ordered SARs OTC cold/flu remedies Acetaminophen or NSAIDs for pain relief. Advised to f/u with PCP if symptoms get worse. Orders: Orders SARS-CoV2/FLU/RSV Today J06.9 - Acute upper respiratory infection, unspecified Coding Level of Care Code Est Pt Level 4 (67142) Diagnoses Acute respiratory disease J06.9 Time Spent (min) 20
--- OUTSIDE RECORDS SUMMARY | 2025-04-10 08:21 | XMS_ITS | Clinical Summary ---
Author Organization [facility] Address [address] [place] [address] Care Team Providers Care Community Artist Name Role Phone Lorne Roberts MD Primary Care Provider [phone] Allergies Active Allergy Reactions Criticality Noted Date [...] age to complete this topic Care Teams Community Artist Relationship Specialty Start Date End Date Lorne Roberts MD [address] [facility] [place] [address] PCP - General Internal Medicine 09/30/17
--- OUTSIDE RECORDS SUMMARY | 2025-04-10 08:21 | XMS_ITS | Clinical Summary ---
Author Organization [facility] Address [address] [place] [address] Phone Care Team Providers Care Rail Assembler Name Role Phone Lorne Roberts MD Primary Care Provider [phone] Allergies Active Allergy Reactions Criticality Noted Date [...] daily. 1 Active glucosamine/msm /chondroitin A (glucosamine VJd-iva-dtkakym itn) 400-200-333 mg tablet Take 3 tablets by mouth daily. 1 Active clotrimazole-be tamethasone (LOTRISONE) 1-0.05 % cream Apply 1 Application topically 2 times daily as needed. 1 Active hydrocortisone (ANUSOL-HC) 2.5 % rectal cream Insert into the rectum 2 (two) times a day. Active Encounters Date Type Department Care Team Description 01/11/2025 12:21 PM EDT Anesthesia Event [facility] OR [address] [place] [address] Skyler Villatoro MD 01/11/2025 11:00 AM EDT - 01/11/2025 12:30 PM EDT Surgery [facility] OR [address] [place] [phone] Ibrahima Becerra MD CYSTOSCOPY, BLADDER NECK DILATION, BLADDER NECK BIOPSY [79399 (CPT ) +1 more] 01/11/2025 9:07 AM EDT - 01/11/2025 3:35 PM EDT Hospital Encounter [facility] OR [address] [place] [phone] Ibrahima Becerra MD Bladder neck contracture; Urethral stricture; Prostatic hemorrhage Discharge Disposition: Home or Self Care from Last 3 Months Surgical History Surgery Date Site/Laterality Comments CYSTOSCOPY BLADDER SURGERY CHOLECYSTECTOMY NEUROMA SURGERY Right right ear ANGIOPLASTY Medical History Medical History Date Comments Hyperlipidemia Hypertension Arthritis GERD (gastroesophageal reflux disease) Myocardial infarction ([facility] V24, [facility] V28) 1999 Cancer ([facility] V24, [facility] V28) prostate Urinary incontinence Social History Tobacco Use Types Packs/Day Years Used Date Smoking Tobacco: Never Smokeless Tobacco: Never Tobacco Cessation:Counseling Given: Not Answered Alcohol Use Standard Drinks/Week Comments Yes 0 (1 standard drink = 0.6 oz pur e alcohol) socially Interpersonal Safety Answer Date Record ed Physical Abuse Unrecognized value 01/11/2025 Verbal Abuse Unrecognized value 01/11/2025 Sex and Gender Information Value Date [...] LMA(NO CHARGE) Routine 01/11/2025 12:34 PM EDT [facility] TRANSURETHRAL INCISION OF PROSTATE 01/11/2025 12:21 PM EDT Bladder neck contracture Prostatic hemorrhage 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 4:47 PM EDT [facility] Gross Description A. Urinary Bladder, neck biopsy: Labeled bladder n bladder . Received in formalin, with Telfa, are four soft, cochran-red, focally cauterized tissue fragments ranging from 0.25 cm to 0.4 cm in greatest diameter, which are wrapped in paper and submitted in toto in one cassette, four pieces, multiple levels. TS 4:47 PM EDT [facility] Disclaimer NOTE: The immunohistochemical tests and in situ hybridization tests were developed and their performance characteristics were determined by [facility]. They have not been [...] fixed and paraffin embedded. 4:47 PM EDT [facility] Tissue Urinary bladder structure / Unknown 01/11/2025 12:48 PM EDT 01/11/2025 2:46 PM EDT us Ibrahima Becerra MD LAB PATHOLOGY ORDERABLES Final R esult [facility] [address] [place] [address], * TH AN LMA(NO CHARGE) (01/11/2025 12:34 PM EDT) Kenan Curtis SRNA - 01/11/2025 12:34 PM EDT JUAN [...] K/mcL LAB HEMETOLOGY METHOD 01/11/2025 10:01 AM [facility] RBC 4.90 4.50 - 5.50 M/mcL LAB HEMETOLOGY METHOD 01/11/2025 10:01 AM [facility] Hemoglobin 14.2 13.5 - 17.5 g/dL LAB HEMETOLOGY METHOD 01/11/2025 10:01 AM [facility] Hematocrit 44.2 42.0 - 54.0 % LAB HEMETOLOGY METHOD 01/11/2025 10:01 AM [facility] MCV 89.5 79.0 - 98.0 FL LAB HEMETOLOGY METHOD 01/11/2025 10:01 AM [facility] MCH 28.7 27.0 - 32.0 pcg LAB HEMETOLOGY METHOD 01/11/2025 10:01 AM [facility] MCHC 32.1 32.0 - 37.0 g/dL LAB HEMETOLOGY METHOD 01/11/2025 10:01 AM [facility] RDW 15.2(H) 11.0 - 15.0 % LAB HEMETOLOGY METHOD 01/11/2025 10:01 AM [facility] Platelets 225 130 - 400 K/mcL LAB HEMETOLOGY METHOD 01/11/2025 10:01 AM [facility] MPV 9.5 7.0 - 11.0 FL LAB HEMETOLOGY METHOD 01/11/2025 10:01 AM [facility] NRBC 0.0 <1.0 % LAB HEMETOLOGY METHOD 01/11/2025 10:01 AM [facility] NRBC Absolute 0.00 <0.10 K/mcL LAB HEMETOLOGY METHOD 01/11/2025 10:01 AM [facility] Neutrophils Relative 62.0 % LAB HEMETOLOGY METHOD 01/11/2025 10:01 AM [facility] Lymphocytes Relative 25.6 % LAB HEMETOLOGY METHOD 01/11/2025 10:01 AM [facility] Monocytes Relative 8.2 % LAB HEMETOLOGY METHOD 01/11/2025 10:01 AM [facility] Eosinophils Relative 3.4 % LAB HEMETOLOGY METHOD 01/11/2025 10:01 AM [facility] Basophils Relative 0.4 % LAB HEMETOLOGY METHOD 01/11/2025 10:01 AM [facility] Immature Granulocytes Relative 0.4 % LAB HEMETOLOGY METHOD 01/11/2025 10:01 AM [facility] Neutrophils Absolute 4.75 1.50 - 7.00 K/mcL LAB HEMETOLOGY METHOD 01/11/2025 10:01 AM [facility] Lymphocytes Absolute 1.96 1.00 - 5.00 K/mcL LAB HEMETOLOGY METHOD 01/11/2025 10:01 AM [facility] Monocytes Absolute 0.63 0.20 - 1.00 K/mcL LAB HEMETOLOGY METHOD 01/11/2025 10:01 AM EDT [facility] Eosinophils Absolute 0.26 0.00 - 0.50 K/[facility] LAB HEMETOLOGY METHOD 01/11/2025 10:01 AM T [facility] Basophils Absolute 0.03 0.00 - 0.20 K/[facility] LAB HEMETOLOGY METHOD 01/11/2025 10:01 AM EDT [facility] Immature Granulocytes Absolute 0.03 0.00 - 0.03 K/[facility] LAB HEMETOLOGY METHOD 01/11/2025 10:01 AM T [facility] Blood Venous blood specimen / Unknown Venipuncture / Unknown 01/11/2025 9:52 AM EDT 01/11/2025 9:55 AM EDT Ibrahima Becerra MD LAB BLOOD ORDERABLES Final Resul t [facility] [address] [place] [address], * (ABNORMAL) Basic metabolic panel (01/11/2025 9:52 AM EDT) Sodium 138 133 - 145 mmol/L LAB CHEMISTRY METHOD 01/11/2025 10:23 AM [facility] Potassium 4.2 3.5 - 5.5 mmol/L LAB CHEMISTRY METHOD 01/11/2025 10:23 AM [facility] Chloride 105 96 - 110 mmol/L LAB CHEMISTRY METHOD 01/11/2025 10:23 AM [facility] CO2 28 21 - 32 mmol/L LAB CHEMISTRY METHOD 01/11/2025 10:23 AM [facility] Anion Gap 5 3 - 11 LAB CHEMISTRY METHOD 01/11/2025 10:23 AM [facility] Glucose 109(H) 70 - 100 mg/dL LAB CHEMISTRY METHOD 01/11/2025 10:23 AM EDT [facility] BUN 17 5 - 25 mg/dL LAB CHEMISTRY METHOD 01/11/2025 10:23 AM EDT [facility] Creatinine 1.11 0.70 - 1.30 mg/dL LAB CHEMISTRY METHOD 01/11/2025 10:23 AM EDT [facility] eGFR 66 >=60 mL/min/1. 73m2 LAB CHEMISTRY METHOD 01/11/2025 10:23 AM EDT [facility] Comment:Calculation based on the Chronic Kidney Disease Epidemiology Collaboration (CKD-EPI) equation refit without adjustment for race. BUN/Creatinine Ratio 15.3 LAB CHEMISTRY METHOD 01/11/2025 10:23 AM EDT [facility] Calcium 9.6 8.5 - 10.5 mg/dL LAB CHEMISTRY METHOD 01/11/2025 10:23 AM T [facility] Blood Venous blood specimen / Unknown Venipuncture / Unknown 01/11/2025 9:52 AM EDT 01/11/2025 9:56 AM EDT us Ibrahima Becerra MD LAB BLOOD ORDERABLES Final Resul t [facility] [address] [place] [address], from Last 3 Months Insurance [facility] MEDIC[facility] Care Teams Rail Assembler Relationship Specialty Start Date End Date Lorne Roberts MD [address] [place] [address] PCP - General Internal Medicine 09/30/17
--- OUTSIDE RECORDS SUMMARY | 2025-04-10 08:21 | XMS_ITS | Encounter Summary ---
Author Organization [facility] Address [address] [place] [address] [place] [phone] Phone Care Team Providers Care Senior Contract Specialist Name Role Phone Jason Deal PA-C Primary Care Provider Rafael Reaves MD Unavailable Encounter Details Date Type Department Care Team (Late st Contact Info) Description 09/19/2024 Procedure Pass [facility] [address] [place] [address] Social History Tobacco Use Types Packs/Day Years [...] Intimate Partner Violence Answer Date R ecorded Denied Basic Needs Not on file 06/21/2024 In the past 12 months have y ou been in a relationship with a person who hurts, threatens, or tries to control you? No 06/21/2024 Worried food would run out Not on file 06/21 In the past 12 months have y [...] Care Team (Late st Contact Info) Description 07/05/2025 7:20 AM EST Office Visit [facility] [address] [place] [address] Jason Deal PA-C [address] [place] [address] 07/10/2025 12:30 PM EST Office Visit [facility] Orthopedics & Sports Medicine [address] [place] [phone] Elizabeth Hoffman MD [address] [place] [address] Orthopedics & Sports Medicine, [place] [address] 10/09/2025 8:30 AM EDT Office Visit [facility] [address] [facility] 3rd Floor, [address] [place] [address] Carlos Nixon DO [address] [facility] [address] [place] [phone] documented as of this encounter Visit Diagnoses Not on filedocumented in this encounter Additional Health Concerns Assessment Noted Time PHQ-2 Depression Total Score: 2 06/21/19 25 7:17 AM EST documented as of this encounter Care Teams Senior Contract Specialist Relationship Specialty Start Date End Date Jason Deal PA-C [address] [place] [phone] PCP - General Physician Building Construction Ironworker 04/04/24 Rafael Reaves MD [address] [place] [phone] Insurance Assigned Provider 09/18/24 documented as of this encounter Additional Source Comments The information contained in this document represents components of the legal health record. It is not the complete legal health record.[facility]
--- OUTSIDE RECORDS SUMMARY | 2025-04-10 08:21 | XMS_ITS | Encounter Summary ---
Author Organization [facility] Address [address] [place] [phone] Phone Care Team Providers Care Screen Making Supervisor Name Role Phone Beth Vanegas NP Primary Care Provider [phone] Rafael Reaves MD Primary Care Provider [phone] Jason Deal PA-C Primary Care Provider [phone] Rafael Reaves MD Unavailable Encounter Details Date Type Department Care Team (Late st Contact Info) Description 03/10/2023 Procedure Pass OR Admitting Dept - Virtual Department [address] [place] [address] Social History Tobacco Use Types Packs/Day Years [...] high school, GED, job training, learning the Algerian language, technical skills, or developing parenting skills)? [...] Description 07/05/2025 7:20 AM EST Office Visit [facility] Internal Medicine [address] [place] [address] Jason Deal PA-C [address] [place] [address] 07/10/2025 12:30 PM EST Office Visit [facility] Orthopedics & Sports Medicine [address] [place] [address] [phone] Elizabeth Hoffman MD [address] [place] [address] Orthopedics & Sports Medicine, [place] [address] 10/09/2025 8:30 AM EDT Office Visit [facility] [address] [facility] 3rd Floor, [address] [place] [address] Carlos Nixon, [address] [facility] [address] [place] [address] documented as of this encounter Visit Diagnoses Not on filedocumented in this encounter Additional Health Concerns Assessment Noted Time PHQ-2 Depression Total Score: 0 09/17/19 23 7:01 PM EDT documented as of this encounter Care Teams Screen Making Supervisor Relationship Specialty Start Date End Date Beth Vanegas, MANAGER LIFE PCP - General Family Medicine 06/20/20 08/18/23 Rafael Reaves MD [address] [place] [address] PCP - General Internal Medicine 08/19/23 04/03/24 Jason Deal PA-C [address] [place] [address] [email or web address] PCP - General Physician [place] Merchant 04/04/24 Rafael Reaves MD [address] [place] [address] Insurance Assigned Provider 09/18/24 documented as of this encounter Additional Source Comments The information contained in this document represents components of the legal health record. It is not the complete legal health record.[facility]
--- OUTSIDE RECORDS SUMMARY | 2025-04-10 08:21 | XMS_ITS | Encounter Summary ---
Author Organization [facility] Address [address] [place] [address] [place] [phone] Phone Care Team Providers Care Translator And Interpreter Name Role Phone Jason Deal PA-C Primary Care Provider [phone] Rafael Reaves MD Unavailable Encounter Details Date Type Department Care Team (Late st Contact Info) Description 03/07/2025 Orders Only [facility] Internal Medicine [address] [facility] [place] [address] Provider, MD Gaetano [address] [place] [address] Social History Tobacco Use Types Packs/Day [...] Description 07/05/2025 7:20 AM EST Office Visit [facility] Internal Medicine [address] [place] [address] Jason Deal PA-C [address], [place] [phone] 07/10/2025 12:30 PM EST Office Visit [facility] Orthopedics & Sports Medicine [address] [place] [phone] Elizabeth Hoffman MD [address] [place] [address] Orthopedics & Sports Medicine, [facility] [place] [address] 10/09/2025 8:30 AM EDT Office Visit [facility] [address] [place] [address] 3rd Floor, [address] [place], [place] [phone] Carlos Nixon DO [address] [place] [address] [place] [phone] documented as of this encounter Procedures Procedure Name Priority Date/Time Associated Diagnosis Comments OUTSIDE US IMAGING REPORT ONLY Routine 03/06/2025 7:47 AM EDT documented in this encounter Results * Outside US Imaging??Report Only (03/06/2025 7:47 AM EDT) us Historical Provider MD ALONSO US OP Final Res ult documented in this encounter Visit Diagnoses Not on filedocumented in this encounter Additional Health Concerns Assessment Noted Time PHQ-2 Depression Total Score: 2 06/21/19 7:17 AM EST documented as of this encounter Care Teams Translator And Interpreter Relationship Specialty Start Date End Date Jason Deal PA-C [address] [place] [address] PCP - General Physician Fortune Teller 04/04/24 Rafael Reaves MD [address] [place] [address] Insurance Assigned Provider 09/18/24 documented as of this encounter Additional Source Comments The information contained in this document represents components of the legal health record. It is not the complete legal health record.[facility]
--- OUTSIDE RECORDS SUMMARY | 2025-04-10 08:22 | XMS_ITS | Encounter Summary ---
Author Organization [facility] Address [address] [place] [phone] Phone Care Team Providers Care Ct Scan Special Procedures Technologist Name Role Phone Jason Deal PA-C Primary Care Provider [phone] Rafael Reaves MD Unavailable Reason for Visit * Reason Onset Date Comments Call from provider 03/17/2025 Encounter Details Date Type Department Care Team (Late st Contact Info) Description 03/17/2025 Telephone [facility] Internal Medicine [address] [place], [place] [phone] Jason Deal PA-C [address] [place], [place] [phone] [email or web address] Call from provider Social History Tobacco Use Types Packs/Day Years [...] as of this encounter Progress Notes * Adrian Todd - 03/17/2025 12:44 PM EDT Spoke to patient and let him know. He might have been getting a confirmation call regarding his imaging set up for 03/18. He said there was no message attached. * Adrian Todd - 03/17/2025 10:39 AM EDT Patient called states he missed a call from provider yesterday at 8 am. I cannot find a message. Heis aware provider is out of office today documented in this encounter Plan of Treatment Upcoming Encounters Date Type Department Care Team (Late st Contact Info) Description 07/05/2025 7:20 AM EST Office Visit [facility] Internal Medicine [address] [place] [address] Jason Deal PA-C [address] [place] [address] [email or web address] 07/10/2025 12:30 PM EST Office Visit [facility] Orthopedics & Sports Medicine [address] [place] [address] Elizabeth Hoffman MD [address] [place] [address] [facility] [place] [address] 10/09/2025 8:30 AM EDT Office Visit [facility] [address] [place] [address] 3rd Floor, [address] [place] [address] Carlos Nixon DO [address] [place] [address] documented as of this encounter Visit Diagnoses Not on filedocumented in this encounter Additional Health Concerns Assessment Noted Time PHQ-2 Depression Total Score: 2 06/21/19 7:17 AM EST documented as of this encounter Care Teams Ct Scan Special Procedures Technologist Relationship Specialty Start Date End Date Jason Deal PA-C [address] [place] [address] [email or web address] PCP - General Physician Meteorologist In Charge 04/04/24 Rafael Reaves MD [address] [place] [address] [email or web address] Insurance Assigned Provider 09/18/24 documented as of this encounter Additional Source Comments The information contained in this document represents components of the legal health record. It is not the complete legal health record.[facility]
--- OUTSIDE RECORDS SUMMARY | 2025-04-10 08:22 | XMS_ITS | Encounter Summary ---
Author Organization [facility] Address [address] [place] [address] Phone Care Team Providers Care Master In Chancery Name Role Phone Beth Vanegas NP Primary Care Provider Rafael Reaves MD Primary Care Provider [phone] Jason Deal PA-C Primary Care Provider [phone] Rafael Reaves MD Unavailable Reason for Referral * MRI/CAT Scan - Closed Specialty Diagnoses / Procedures Referred By Elizabeth viveros Referred To Contact Radiology Diagnoses Facial weakness Dizziness and giddiness Sensorineural hearing loss, bilateral Procedures MRI Brain Marianna Alonso PA-C Phone: tel: fax: [email or web address] Referral ID Status Reason Start Date Expiration Date Visits Re quested Visits Authorized [id number] Closed 12/01/2022 1 1 Encounter Details Date Type Department Care Team (Late st Contact Info) Description 12/01/2022 Transcribe Orders Virtual Department [address] [place] [address] Marianna Alonso PA-C [address] [place] [phone] [email or web address] Facial weakness (Primary Dx); Dizziness and [...] high school, GED, job training, learning the [place] language, technical skills, or developing parenting skills)? [...] Description 07/05/2025 7:20 AM EST Office Visit [facility] Internal Medicine [address] [place] [address] Jason Deal PA-C [address] [place] [address] [email or web address] 07/10/2025 12:30 PM EST Office Visit [facility] Orthopedics & Sports Medicine [address] [place] [address] [phone] Elizabeth Hoffman MD [address] [place] [address] Orthopedics & Sports Medicine, [facility] [place] [address] 10/09/2025 8:30 AM EDT Office Visit [facility] [address] [place] [address] 3rd [facility], [address] [place] [address] Carlos Nixon DO [address] [place] [address] [place] [address] [phone] [email or web address] documented as of this encounter Results * [...] documented as of this encounter Care Teams Master In Chancery Relationship Specialty Start Date End Date Beth Vanegas NP [email or web address] PCP - General Family Medicine 06/20/20 08/18/23 Rafael Reaves MD [address] [place] [address] [email or web address] PCP - General Internal Medicine 08/19/23 04/03/24 Jason Deal PA-C [address] [place] [address] [email or web address] PCP - General Physician Soil Field Technician 04/04/24 Rafael Reaves MD [address] [place] [phone] [email or web address] Insurance Assigned Provider 09/18/24 documented as of this encounter Additional Source Comments The information contained in this document represents components of the legal health record. It is not the complete legal health record.[facility]
--- OUTSIDE RECORDS SUMMARY | 2025-04-10 08:22 | XMS_ITS | Encounter Summary ---
Author Organization [facility] Address [address] [place] [address] Phone Care Team Providers Care Insurance Claims Representative Name Role Phone Jason Deal PA-C Primary Care Provider [phone] Rafael Reaves MD Unavailable Encounter Details Date Type Department Care Team (Late st Contact Info) Description 02/15/2025 Procedure Pass [facility] [place], Ct Scan - [address] [id number] Social History Tobacco Use Types Packs/Day Years [...] 07/05/2025 7:20 AM EST Office Visit [facility] [place] [facility] [address] [place] [address] Jason Deal PA-C [address] [place] [address] 07/10/2025 12:30 PM EST Office Visit [facility] Orthopedics & Sports Medicine [address] [place] [phone] Elizabeth Hoffman MD [address] [place] [address] Orthopedics & Sports Medicine, [facility] [place] [address] 10/09/2025 8:30 AM EDT Office Visit [facility] 22 [facility] 3rd Floor, [address] [place] [address] Carlos Nixon DO 22 [facility] [address] [place] [address] [phone] documented as of this encounter Visit Diagnoses Not on filedocumented in this encounter Additional Health Concerns Assessment Noted Time PHQ-2 Depression Total Score: 2 06/21/19 25 7:17 AM EST documented as of this encounter Care Teams Insurance Claims Representative Relationship Specialty Start Date End Date Jason Deal PA-C [address] [place] [address] PCP - General Physician Tool Specialist 04/04/24 Rafael Reaves MD [address] [place] [address] Insurance Assigned Provider 09/18/24 documented as of this encounter Additional Source Comments The information contained in this document represents components of the legal health record. It is not the complete legal health record.[facility]
--- OUTSIDE RECORDS SUMMARY | 2025-04-10 08:22 | XMS_ITS | Encounter Summary ---
Author Organization [facility] Address [address] [facility] [address] [place] [address] Phone Care Team Providers Care Global Consumer [employer] Vice President Name Role Phone Beth Vanegas NP Primary Care Provider [phone] Rafael Reaves MD Primary Care Provider [phone] Jason Deal PA-C Primary Care Provider [phone] Rafael Reaves MD Unavailable Encounter Details Date Type Department Care Team (Late st Contact Info) Description 12/01/2022 Procedure Pass [facility], [address] [address] Social History Tobacco Use Types Packs/Day Years [...] high school, GED, job training, learning the [place] language, technical skills, or developing parenting skills)? [...] Description 07/05/2025 7:20 AM EST Office Visit [facility] Internal Medicine [address] [place] [address] Jason Deal PA-C [address] [place] [phone] [email or web address] 07/10/2025 12:30 PM EST Office Visit [facility] Orthopedics & Sports Medicine [address] [place] [phone] Elizabeth Hoffman MD [address] [place] [address] Orthopedics & Sports Medicine, [facility] [place], [place] [phone] 10/09/2025 8:30 AM EDT Office Visit [facility] 22 [facility] 3rd Floor, [address] [place], [place] [phone] Carlos Nixon DO 22 [facility] [address] [place], [place] [phone] documented as of this encounter Visit Diagnoses Not on filedocumented in this encounter Additional Health Concerns Assessment Noted Time PHQ-2 Depression Total Score: 0 09/17/19 23 7:01 PM EDT documented as of this encounter Care Teams Global Consumer Sector Vice President Relationship Specialty Start Date End Date Beth Vanegas NP PCP - General Family Medicine 06/20/20 08/18/23 Rafael Reaves MD [address] [place] [address] PCP - General Internal Medicine 08/19/23 04/03/24 Jason Deal PA-C [address] [place] [address] PCP - General Physician Airplane Charter Clerk 04/04/24 Rafael Reaves MD [address] [place] [address] Insurance Assigned Provider 09/18/24 documented as of this encounter Additional Source Comments The information contained in this document represents components of the legal health record. It is not the complete legal health record.[facility]
--- OUTSIDE RECORDS SUMMARY | 2025-04-10 08:22 | XMS_ITS | Encounter Summary ---
Author Organization [facility] Address [address] [place] [address] Phone Care Team Providers Care Temporary Office Assistant Name Role Phone Beth Vanegas NP Primary Care Provider [phone] Rafael Reaves MD Primary Care Provider [phone] Jason Deal PA-C Primary Care Provider [phone] Rafael Reaves MD Unavailable Encounter Details Date Type Department Care Team (Late st Contact Info) Description 12/20/2021 Procedure Pass [place] Admitting Dept - Virtual Department [address] [place] [address] Social History Tobacco Use Types Packs/Day Years [...] 07/05/2025 7:20 AM EST Office Visit [facility] Internal Medicine [address] [facility] [address] Jason Deal PA-C [address] [place] [address] 07/10/2025 12:30 PM EST Office Visit [facility] Orthopedics & Sports Medicine [address] [place] [address] [phone] Elizabeth Hoffman MD [address] [place] [address] Orthopedics & Sports Medicine, [facility] [place], [place] [phone] 10/09/2025 8:30 AM EDT Office Visit [facility] 22 [facility] 3rd Floor, [address] [place], [place] [phone] Carlos Nixon DO 22 [facility] [address] [place] [address] [phone] documented as of this encounter Visit Diagnoses Not on filedocumented in this encounter Additional Health Concerns Assessment Noted Time PHQ-2 Depression Total Score: 0 09/13/19 8:26 AM EDT documented as of this encounter Care Teams Temporary Office Assistant Relationship Specialty Start Date End Date Beth Vanegas NP PCP - General Family Medicine 06/20/20 08/18/23 Rafael Reaves MD [address] [place] [phone] PCP - General Internal Medicine 08/19/23 04/03/24 Jason Deal PA-C [address] [place] [phone] PCP - General Physician Silo Tender 04/04/24 Rafael Reaves MD [address] [place] [phone] [email or web address] Insurance Assigned Provider 09/18/24 documented as of this encounter Additional Source Comments The information contained in this document represents components of the legal health record. It is not the complete legal health record.[facility]
--- OUTSIDE RECORDS SUMMARY | 2025-04-10 08:22 | XMS_ITS | Clinical Summary ---
Author Organization [facility] Address [address] [place] [phone] Phone Care Team Providers Care Tinsmith Apprentice Name Role Phone Jason Deal PA-C Primary Care Provider [phone] Rafael Reaves MD Unavailable Allergies Active Allergy Reactions Criticality Noted Date Comments Cephalexin Unknown 06/21/2024 Levofloxacin Diarrhea,Nausea and/or Vomiting Penicillins Rash Low 05/14/2017 Medications aspirin 81 mg chewable tablet Take 1 tablet (81 mg total) by mouth daily. 90 tablet 3 1 Active glucosamine/msm/ chondroitin A (GLUCOSAMINE JWA-JYZ-SEACOKLG TN) 400-200-333 mg TabIndications:3 tabs daily Take 3 tablets by mouth daily. Indications: 3 tabs daily 90 each 3 1 Active clotrimazole-bet amethasone (LOTRISONE) cream Apply 1 application topically 2 (two) times a day as needed. APPLY TO AFFECTED AREA 1 Active acetaminophen (TYLENOL) 325 mg tablet Take 1-2 tablets (325-650 mg total) by mouth every 6 (six) hours as needed (mild - moderate pain). 3 Active atenolol (TENORMIN) 50 mg tabletIndication s:Essential hypertension TAKE 1 TABLET DAILY 90 tablet 3 5 Active nitroglycerin (NITROSTAT) 0.[address] 1 tablet (0.4 mg total) under the tongue every 5 (five) minutes as needed for chest pain. 15 tablet 2 5 Active lisinopril (PRINIVIL,ZESTRI L) 40 MG tabletIndication s:Essential hypertension Take 1 tablet (40 mg total) by mouth every morning. 90 tablet 3 5 Active omeprazole (PRILOSEC) 40 MG capsuleIndicatio ns:Gastroesophag eal reflux disease without esophagitis TAKE 1 CAPSULE TWICE DAILY 180 capsule 3 5 Active hydrocortisone 2.5 % cream Apply topically 2 (two) times a day. 28 g 1 5 Active rosuvastatin (CRESTOR) 40 MG tablet Take 1 tablet (40 mg total) by mouth daily. 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 Continue aspirin 81 mg daily and atenolol 50 mg p.o. daily. Bladder neck contracture 05/14/2017 Essential hypertension 05/14/2017 Assessment & Plan (03/07/2025 7:20 AM EDT): Controlled to the guidelines Assessment & Plan (02/15/2025 9:20 AM EDT): [...] does have an upcoming appointment with his rubber compounder supervisor on 03/07. I did explain to the patient that his rubber compounder supervisor may require him to be on an [...] Dr. Reaves -I will obtain an urgent [facility] cardiology referral -Urgent stress test -Echocardiogram -Nitroglycerin [...] Encounters Date Type Department Care Team Description 04/04/2025 2:30 PM EDT Procedure visit [facility] Orthopedics & Sports Medicine [address] [place] [id number] Caty Cortez MD Carpal tunnel syndrome of left wrist (Primary Dx) 03/18/2025 11:58 AM EDT - 03/18/2025 11:59 PM EDT Hospital Encounter [facility], Ct Scan - [address] [address] Jason Deal PA-C Discharge Disposition: Home or Self Care 03/18/2025 11:57 AM EDT Hospital Encounter [facility], X-Ray - [address] [address] Jason Deal PA-C Discharge Disposition: Home or Self Care 03/17/2025 Telephone [facility] Internal Medicine [address] [place] [address] Jason Deal PA-C Call from provider 03/09/2025 Telephone [facility] Internal Medicine [address] [place] [address] Jason Deal PA-C Results 03/07/2025 7:00 AM EDT Office Visit [facility] [address] Floor, [address] [place] [address] Carlos Nixon DO Mixed hyperlipidemia (Primary Dx); Atherosclerosis of afogn[place] coronary artery of af[place] heart without angina pectoris; Essential hypertension; Prediabetes 03/07/2025 Orders Only [facility] Internal Medicine [address] [place] [address] ProviderGaetano MD 02/23/2025 Telephone [facility] Internal Medicine [address] [place] [address] Jason Deal PA-C Discuss ultrasound 02/22/2025 Orders Only [facility] Internal Medicine [address] [place] [address] ProviderGaetano MD 02/20/2025 Telephone [facility] Internal Medicine [address] [place] [address] Jason Deal PA-C Results 02/16/2025 2:17 PM EDT - 02/16/2025 11:59 PM EDT Hospital Encounter [facility] Laboratory [address] [place] [address] Jason Deal PA-C Discharge Disposition: Home or Self Care 02/16/2025 1:00 PM EDT Office Visit [facility] Orthopedics & Sports Medicine [address] [place] [address] Elizabeth Hoffman MD Numbness and tingling in left hand (Primary Dx) 02/15/2025 9:48 AM EDT - 02/15/2025 11:59 PM EDT Hospital Encounter [facility] Laboratory [address] [place] [address] Jason Deal PA-C Discharge Disposition: Home or Self Care 02/15/2025 8:40 AM EDT Office Visit [facility] Internal Medicine [address] [place] [address] Jason Deal PA-C Mixed hyperlipidemia (Primary Dx); Needs flu shot; Unexplained weight loss; Prediabetes; Essential hypertension 02/15/2025 Procedure Pass [facility], Ct Scan - [facility] [address] [place] [address] 02/09/2025 8:50 AM EDT - 02/09/2025 11:59 PM EDT Hospital Encounter [facility] [address] [place] [address] Jason Deal PA-C Discharge Disposition: Home or Self Care 02/09/2025 Transcribe Orders [facility] [address] [place] [address] Ibrahima Becerra MD Personal history of malignant neoplasm of prostate (Primary Dx) 02/09/2025 Telephone [facility] Internal Medicine [address] [place] [address] Jason Deal PA-C 02/01/2025 Telephone [facility] General Surgical Care [address] [place] [address] Christine Hernandez, clearing tub worker Question 01/27/2025 Refill [facility] Internal Medicine [address] [place] [address] Rafael Reaves MD Medication Refill from Last [...] Sign Reading Time Taken Comments Blood Pressure 138/70 03/07/2025 7:17 AM EDT Pulse 58 03/07/2025 7:17 AM EDT Temperature 36.2 C (97.1 F) 09/19/2024 7:59 AM EDT Respiratory Rate 16 02/15/2025 8:33 AM EDT Oxygen Saturation 96% 03/07/2025 7:17 AM EDT Inhaled Oxygen Concentration - - Weight 81.4 kg (179 lb 6.4 oz) 02/15/2025 8:33 A M EDT Height 172 cm (5' 7.72 ) 02/15/2025 8:33 AM EDT Body Mass Index 27.51 02/15/2025 8:33 AM EDT Plan of Treatment Upcoming Encounters Date Type Department Care Team (Late st Contact Info) Description 07/05/2025 7:20 AM EST Office Visit [facility] Internal Medicine [address] [place] [address] Jason Deal PA-C [address] [place] [address] 07/10/2025 12:30 PM EST Office Visit [facility] Orthopedics & Sports Medicine [address] [place] [address] Elizabeth Hoffman MD [address] [place] [address] Orthopedics & Sports Medicine, [facility] [place], [place] [id number] 10/09/2025 8:30 AM EDT Office Visit [facility] [address] [place] [address] [address]rd Floor, [address] [place], [place] [phone] Carlos Nixon DO [address] [facility] [address] [place] [id number] [email or web address] Health Maintenance Due Date Last Done Comments RSV VACCINE (1 - 1-dose 75+ series) 2017 COVID-19 VACCINE ( season) 2025 03/18/2024, 03/23/2023, 04/21/2022, Additional history exists DEPRESSION SCREENING 06/21/2025 06/21/2024 BLOOD PRESSURE 09/04/2025 03/07/2025 CREATININE LEVEL 02/09/2026 02/09/2025, , 03/21/2024, Additional [...] this topic Medical Devices Implanted Type Area Processor Solid Propellant Device Identifier Shelf Expiration Date Model / Serial / Lot Mesh Surgical 15cm 8 Hernia Prolene Polypropylene Nonabsorbable Repair Bx/6ea - [id number] Implanted:Qty: 1 on 03/10/2023 by Katia Chandra MD at [facility] STANDARD N/A: Umbilical JNJ ETHICON / DIVISION OF J [id number] 03/14/2027 PMII / / [id number] Procedures Procedure Name Priority Date/Time Associated Diagnosis Comments CT ABDOMEN/PELVIS WITH CONTRAST Routine 03/18/2025 1:16 PM EDT Unexplained weight loss XR CHEST PA AND LATERAL 2 VIEWS Routine 03/18/2025 12:13 PM EDT Unexplained weight loss OUTSIDE US IMAGING REPORT ONLY Routine 03/06/2025 7:47 AM EDT US UPPER EXTREMITY VEINS DUPLEX (RIGHT) Routine 02/28/2025 8:54 AM EDT Edema, unspecified type Right arm pain US UPPER EXTREMITY VEINS DUPLEX (RIGHT) Routine 02/27/2025 5:06 PM EDT Edema, unspecified type Right arm pain Acute basilic vein thrombosis, right OUTSIDE US VEINS EXTREMITY UPPER REPORT ONLY [...] hyperlipidemia from Last 3 Months Results * CT ABDOMEN/PELVIS WITH CONTRAST (03/18/2025 1:16 PM EDT) Anatomical Region Laterality Modality Abdomen, Pelvis Computed Tomogra phy 03/22/2025 9:57 AM EDT Impressions 03/22/2025 10:07 AM EDT 1. No evidence of abdominal pelvic metastatic disease or specific etiology of weight loss. 2. Sigmoid diverticulosis. Narrative 03/22/2025 10:[address] ABDOMEN/PELVIS WITH CONTRAST Referring clinician's provided indication for this examination in Epic: * Weight loss, unintended; hx of prostate cancer TECHNIQUE: Multidetector-row CT of the abdomen and pelvis was performed after administration of intravenous contrast using tailored dose modulation techniques. Images were reconstructed in the axial, coronal, and sagittal planes. COMPARISON: 02/21/[address] FINDINGS: Lower Chest: Progression of non-specific bibasilar subpleural interstitial changes without focal airspace consolidation or pleural effusion. No worrisome parenchymal nodule identified. Small left basilar granuloma. Liver: No hepatomegaly or focal parenchymal lesion. Biliary: Status post cholecystectomy. No evidence of biliary obstruction. Spleen: No splenomegaly or focal parenchymal lesion. Pancreas: No parenchymal mass or duct dilatation apparent. No peripancreatic inflammatory infiltration. Adrenal Glands: No nodules. Kidneys/Ureters: Interval enlargement of left upper pole cortical cyst, now measuring approximately 3 cm. No solid renal mass, hydronephrosis, or nephrolithiasis. Bowel: Stomach nondistended. Chronic incidental duodenal diverticulum. No evidence of small bowel obstruction. Appendix unremarkable. Moderate colonic stool burden without annular constricting mass. Prominent, progressive sigmoid diverticulosis without evidence of acute diverticulitis. Peritoneum/Retroperitoneum: No free fluid or mass. Lymph Nodes: No pathologically enlarged mesenteric, para-aortic, iliac chain, or inguinal nodes apparent. Pelvic Organs/Bladder: Bladder decompressed making it difficult to exclude wall thickening. Chronic prostatic bed radiation seeds. No free fluid or mass. Vessels: Aortoiliac atherosclerotic plaquing without focal aneurysm. Chronic atherosclerotic plaquing in the upper abdominal visceral vessels without evidence of celiac axis or SMA main trunk occlusion. Main portal vein grossly patent. Bones/Soft Tissues: No abdominal wall mass or bowel containing hernia. Evidence of previous umbilical hernia repair. Chronic severe grade 2 spondylolisthesis at the lumbosacral junction, without acute bony pathology or lytic or sclerotic metastatic deposits apparent. Procedure Note Ezekiel Boone MD - 03/22/2025 CT ABDOMEN/PELVIS WITH CONTRAST Referring clinician's provided indication for this examination in Epic: *Weight loss, unintended; hx of prostate cancer TECHNIQUE: Multidetector-row CT of the abdomen and pelvis was performedafter administration of intravenous contrast using tailored dosemodulation techniques. Images were reconstructed in the axial, coronal,and sagittal planes. COMPARISON: 02/21/[address] FINDINGS: Lower Chest: Progression of non-specific bibasilar subpleural interstitialchanges without focal airspace consolidation or pleural effusion. Noworrisome parenchymal nodule identified. Small left basilar granuloma. Liver: No hepatomegaly or focal parenchymal lesion. Biliary: Status post cholecystectomy. No evidence of biliaryobstruction. Spleen: No splenomegaly or focal parenchymal lesion. Pancreas: No parenchymal mass or duct dilatation apparent. Noperipancreatic inflammatory infiltration. Adrenal Glands: No nodules. Kidneys/Ureters: Interval enlargement of left upper pole cortical cyst,now measuring approximately 3 cm. No solid renal mass, hydronephrosis, ornephrolithiasis. Bowel: Stomach nondistended. Chronic incidental duodenal diverticulum. Noevidence of small bowel obstruction. Appendix unremarkable. Moderatecolonic stool burden without annular constricting mass. Prominent,progressive sigmoid diverticulosis without evidence of acutediverticulitis. Peritoneum/Retroperitoneum: No free fluid or mass. Lymph Nodes: No pathologically enlarged mesenteric, para-aortic, iliacchain, or inguinal nodes apparent. Pelvic Organs/Bladder: Bladder decompressed making it difficult to excludewall thickening. Chronic prostatic bed radiation seeds. No free fluid ormass. Vessels: Aortoiliac atherosclerotic plaquing without focal aneurysm.Chronic atherosclerotic plaquing in the upper abdominal visceral vesselswithout evidence of celiac axis or SMA main trunk occlusion. Main portalvein grossly patent. Bones/Soft Tissues: No abdominal wall mass or bowel containing hernia.Evidence of previous umbilical hernia repair. Chronic severe grade 2spondylolisthesis at the lumbosacral junction, without acute bonypathology or lytic or sclerotic metastatic deposits apparent. IMPRESSION: 1. No evidence of abdominal pelvic metastatic disease or specificetiology of weight loss. 2. Sigmoid diverticulosis. us Jason Deal PA-C IMG CT ABD/PELVIS Final Resul t * XR CHEST PA AND LATERAL 2 VIEWS (03/18/2025 12:13 PM EDT) Anatomical Region Laterality Modality Chest Computed Radiogr aphy 03/18/2025 3:42 PM EDT Impressions 03/18/2025 3:43 PM EDT No acute abnormality. Narrative 03/18/2025 3:43 PM EDT XR CHEST PA AND LATERAL 2 VIEWS Referring clinician's provided indication for this examination in [facility]: Weight Loss; hx of prostate cancer COMPARISON: None FINDINGS: Devices/Tubes/Lines: None. Lungs: The lungs are clear. No focal consolidation or pulmonary edema. Pleura: No pleural effusion or pneumothorax. Heart/Mediastinum: The heart and mediastinum are normal. Bones/Soft Tissues: Spondylosis. Degenerative changes of the shoulders. Cholecystectomy clips. Procedure Note Ramu Zendejas MD - 03/18/2025 XR CHEST PA AND LATERAL 2 VIEWS Referring clinician's provided indication for this examination in [facility]:Weight Loss; hx of prostate cancer COMPARISON: None FINDINGS: Devices/Tubes/Lines: None. Lungs: The lungs are clear. No focal consolidation or pulmonary edema. Pleura: No pleural effusion or pneumothorax. Heart/Mediastinum: The heart and mediastinum are normal. Bones/Soft Tissues: Spondylosis. Degenerative changes of the shoulders.Cholecystectomy clips. IMPRESSION: No acute abnormality. Jason Deal PA-C IMG XR CHEST Final Result * Outside US Imaging??Report Only (03/06/2025 7:47 AM EDT) Historical Provider MD ALONSO US OP Final Res ult * Outside US Veins Extremity Upper Report Only (02/22/2025 5:54 PM EDT) Historical Provider MD ALONSO US EXTREMITY Final Re sult * Fecal immunochemical test x1 (FIT) (02/16/2025 7:00 AM EDT) Pathologist [facility] Immuno Fecal Occult Negative Negative [facility] Stool (Stool) 02/16/2025 7:0 0 AM EDT 02/16/2025 2:22 PM EDT Jason Deal PA-C BODY FLUIDS AND STOOLS ORDERA BLES Final Result Performing Organization Address City/[facility]/ZIP Co de Phone Number [address] [phone] * TSH with reflex (02/15/2025 9:47 AM EDT) Pathologist [facility] TSH 3.73 0.27 - 4.20 uIU/mL [facility] Blood 02/15/2025 9:47 AM EDT 02/15/2025 9:53 AM EDT Jason Deal PA-C LAB BLOOD ORDERABLES Final Re sult [address] [address] * (ABNORMAL) CBC and differential (02/15/2025 9:47 AM EDT) WBC 7.03 4.00 - 11.00 K/uL [facility] RBC 4.89 4.50 - 5.90 M/uL [facility] HGB 14.2 13.5 - 17.5 g/dL [facility] HCT 44.2 41.0 - 53.0 % [facility] PLT 259 150 - 450 K/uL [facility] MCV 90.4 80.0 - 100.0 fL [facility] MCH 29.0 27.0 - 31.0 pg [facility] MCHC 32.1 32.0 - 36.0 g/dL [facility] RDW 14.8(H) 11.5 - 14.5 % [facility] MPV 9.8 8.4 - 12.0 fL [facility] NRBC 0.00 0.00 /100 WBCs [facility] ABSOLUTE NRBC 0.00 0.00 K/uL [facility] DIFF METHOD Auto [facility] NEUTS 61.6 48.0 - 76.0 % [facility] LYMPHS 24.3 18.0 - 41.0 % [facility] MONOS 10.2 4.0 - 11.0 % [facility] EOS 3.1 0.0 - 5.0 % [facility] BASOS 0.4 0.0 - 1.5 % [facility] Granulocytes, immature (%) 0.4 0.0 - 0.9 % [facility] ABSOLUTE NEUTS 4.32 1.92 - 7.60 K/uL [facility] ABSOLUTE LYMPHS 1.71 0.72 - 4.10 K/uL [facility] ABSOLUTE MONOS 0.72 0.16 - 1.10 K/uL [facility] ABSOLUTE EOS 0.22 0.00 - 0.50 K/uL [facility] ABSOLUTE BASOS 0.03 0.00 - 0.15 K/uL [facility] Granulocytes, immature 0.03 0.00 - 0.09 K/uL [facility] Blood 02/15/2025 9:47 AM EDT 02/15/2025 9:53 AM EDT us Jason Deal PA-C LAB BLOOD ORDERABLES Final Re sult [facility] [address] [place] [address] * (ABNORMAL) Comprehensive metabolic panel (02/09/2025 8:45 AM EDT) SODIUM 137 133 - 146 mmol/L [facility] POTASSIUM 4.4 3.3 - 5.1 mmol/L [facility] CHLORIDE 103 96 - 108 mmol/L [facility] CO2 25 21 - 35 mmol/L [facility] BUN 18 6 - 19 mg/dL [facility] CREATININE 1.00 0.5 - 1.5 mg/dL [facility] GLUCOSE 106(H) 70 - 99 mg/dL [facility] ALBUMIN 3.7(L) 3.9 - 4.8 g/dL [facility] TOTAL PROTEIN 6.8 6.5 - 8.0 g/dL [facility] CALCIUM 9.6 8.4 - 10.3 mg/dL [facility] ALKALINE PHOSPHATASE 68 39 - 117 U/L [facility] TOTAL BILIRUBIN 0.8 0.0 - 1.2 mg/dL [facility] AST 20 0 - 37 U/L [facility] ALT 11 0 - 40 U/L [facility] GLOBULIN 3.1 1 - 4.8 g/dL [facility] EGFR 75 >59 mL/min/1.7 3m2 [facility] Comment:Estimated glomerular filtration rate calculated using the CKD-EPI refit equation. ANION GAP 13 10 - 20 mmol/L [facility] Blood 02/09/2025 8:45 AM EDT 02/09/2025 8:50 AM EDT us Jason Deal PA-C LAB BLOOD ORDERABLES Final Re sult [facility] [address] [place] [address] * PSA diagnostic (monitoring) (02/09/2025 8:45 AM EDT) PSA 0.04 0 - 4.00 ng/mL [facility] Comment: Test Methodology Jorge [id number] Patient results determined by assays using different manufacturers or methods may not be comparable. Blood 02/09/2025 8:45 AM EDT 02/09/2025 8:50 AM EDT us Ibrahima Becerra MD LAB BLOOD ORDERABLES Final Res ult Performing Organization Address City/[facility] Co de Phone Number [address] [phone] * Hemoglobin A1c (02/09/2025 8:45 AM EDT) HEMOGLOBIN A1C 5.6 4.3 - 5.8 % [facility] Blood 02/09/2025 8:45 AM EDT 02/09/2025 8:50 AM EDT us Carlos Nixon DO LAB BLOOD ORDERABLES Final Re sult Performing Organization Address [facility] de Phone Number [address] [address] * Lipid panel (02/09/2025 8:45 AM EDT) HDL 40 mg/dL [facility] Comment: Interpretation <40 mg/dL: Low HDL cholesterol (major risk factor for CHD) Greater than or equal to 60 mg/dL: High HDL cholesterol ( negative risk factor for CHD) HDL - cholesterol is affected by a number of factors, e.g. smoking, excerise, hormones, sex and age. CHOLESTEROL 142 0 - 240 mg/dL [facility] TRIGLYCERIDES 111 30 - 160 mg/dL [facility] LDL 80 50 - 129 mg/dL [facility] Comment: LDL levels in terms of risk for coronary heart disease: <100 mg/dL: Optimal 100-129 mg/dL: Near or above optimal 130-159 mg/dL: Borderline high 160-189 mg/dL: High >190 mg/dL: Very High CARDIAC RISK RATIO 3.6 3.4 - 5.0 [facility] Blood 02/09/2025 8:45 AM EDT 02/09/2025 8:50 AM EDT us Carlos Nixon DO LAB BLOOD ORDERABLES Final Re sult Performing Organization Address [facility] Co de Phone Number [address] [phone] from Last 3 Months Insurance MEDICARE PART A & B [employer] MEDEX SUPPLEMENT MEDICARE PART A & B [employer] MEDEX SUPPLEMENT MEDICARE PART A & B [facility] MEDEX SUPPLEMENT MEDICARE PART A & B [employer] MEDEX SUPPLEMENT MEDICARE PART A & B [employer] MEDEX SUPPLEMENT MEDICARE PART A & B [employer] MEDEX SUPPLEMENT MEDICARE PART A & B [employer] MEDEX SUPPLEMENT MEDICARE PART A & B [employer] MEDEX SUPPLEMENT MEDICARE PART A & B [employer] MEDEX SUPPLEMENT Advance Directives For more information, please contact: [phone] (9AM - 5PM [place], Thursday-Thursday) * Full Code (Latest Code Status on File) Date Activated Date Inactivated Comments 03/10/2023 11:16 AM Question Answer Comments Code Status Confirmed With: Patient Care Teams Tinsmith Apprentice Relationship Specialty Start Date End Date Jason Deal PA-C [address] [place] [address] PCP - General Physician Cashier Manager 04/04/24 Rafael Reaves MD [address] [place] [address] Insurance Assigned Provider 09/18/24 Additional Source Comments The information contained in this document represents components of the legal health record. It is not the complete legal health record.[facility]
== END 2025-04-10 08:31 | disposition home or self-care (01) ==
PROVIDERS: PCP Physician Assistant Surgical; Visit Provider Nurse Practitioner Family
DX: J06.9 Acute upper respiratory infection, unspecified (principal)

== ENCOUNTER 2025-04-10 08:08 | Outpatient (REF) | payer MEDICARE, SELFPAY ==
--- OUTSIDE RECORDS SUMMARY | 2025-04-10 08:49 | XMS_ITS | Data Portability ---
Author Organization [place] - [facility], Allergy Address [address] [place] [phone] Care Team Providers Care Criminal Justice Professor Name Role Phone JASMINE WESLEY Primary Care Provider Assessment Encounter Date Assessment Date Assessment LastModified by Organization Details LastModified Time 06/20/2024 06/20/2024 84-year-old male presents for cerumen removal. Cerumen removed on the right side only. Left side free of cerumen. TMs normal to inspection. Follow-up in 4 months. [email or web address] Not available 06/20/2024 12:06:53 10/28/2024 10/28/2024 84-year-old male presents for cerumen removal. Cerumen removed bilaterally. Follow-up as scheduled for repeat procedure. [email or web address] Not available 10/28/2024 11:45:44 Plan of Treatment Reminders Order Date Submit Date Provider Last Modified By Organization Details Last Modified Time Details Appointments Establish ed 15 2024 11:45A M RADHA MICHEL PA-C Not available Not available Not available Lab None recorded. Referral None recorded. Procedures None recorded. Surgeries None recorded. Imaging None recorded. Medication Orders None recorded. Patient TargetsNo targets recorded. Patient InstructionsNo instructions recorded. Reason for Referral None Reported. Results Created Date Observation Date Name Description Value Unit Range Abnormal Flag Note LastModifiedBy Organization Detail LastModifiedTime 02/02/20 24 07/05/2021 imagi ng/di agnos tic resul t No observ ation record ed. [email or web address] Not Available 18:19:50 02/02/20 24 10/20/2023 imagi ng/di agnos tic resul t No observ ation record ed. [email or web address] Not Available 18:19:57 02/02/20 24 11/11/2022 imagi ng/di agnos tic resul t No observ ation record ed. [email or web address] Not Available 18:20:11 02/02/20 24 03/25/2019 imagi ng/di agnos tic resul t No observ ation record ed. [email or web address] Not Available 18:20:36 02/02/20 24 03/25/2019 imagi ng/di agnos tic resul t No observ ation record ed. [email or web address] Not Available 18:20:38 02/02/20 24 11/11/2022 audio gram No observ ation record ed. [email or web address] Not Available 18:20:46 02/02/20 24 06/27/2019 audio gram No observ ation record ed. [email or web address] Not Available 18:20:53 02/02/20 24 07/05/2021 audio gram No observ ation record ed. [email or web address] Not Available 18:20:57 02/02/20 24 07/05/2021 audio gram No observ ation record ed. [email or web address] Not Available 18:21:01 02/02/20 24 07/11/2019 audio gram No observ ation record ed. [email or web address] Not Available 18:21:02 02/02/20 24 07/15/2019 audio gram No observ ation record ed. [email or web address] Not Available 18:21:04 02/02/20 24 08/25/2019 audio gram No observ ation record ed. [email or web address] Not Available 18:21:05 02/02/20 24 09/19/2022 audio gram No observ ation record ed. [email or web address] Not Available 18:21:07 02/02/20 24 10/20/2023 audio gram No observ ation record ed. [email or web address] Not Available 18:21:12 02/02/2003/25/2019 audio gram No observ ation record ed. [email or web address] Not Available 18:21:25 02/02/20 24 04/04/2019 audio gram No observ ation record ed. [email or web address] Not Available 18:21:32 02/02/2004/11/2019 audio gram No observ ation record ed. [email or web address] Not Available 18:21:33 Result Notes None recorded. Problems Name Problem SNOMED Code Status Onset Date Resolution Date Notes Provider Name and Address Organization Details Recorded Time Sensorin eural hearing loss of bilatera l ears 356001701 Active 2018 Sensorin eural hearing loss, bilatera l; Note: Date Diagnose d: 03/25/20 2:08 PM (H90.3) Not Available [facility] 4 02:46:48 Myoclonu s 74622646 Completed 201801/15/2024 Myoclonu s; Note: Date Diagnose d: 03/25/20 2:38 PM (G25.3) Not Available [facility] 4 02:46:48 Impacted cerumen in right ear 88921349610 79078 Active 2018 Impacted cerumen, right ear; Note: Date Diagnose d: 03/25/20 2:35 PM (H61.21) Not Available [facility] 4 02:46:47 Weakness of face muscles 96411409 Active 2018 Facial weakness ; Note: Date Diagnose d: 03/25/20 19 2:46 PM (R29.810 ) Not Available [facility] 4 02:46:49 Bilatera l tinnitus 11669122015 02 Active 2018 Tinnitus , bilatera l; Note: Date Diagnose d: 03/25/20 19 2:08 PM (H93.13) Not Available [facility] 4 02:46:40 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 201801/15/2024 Benign neoplasm of cranial nerves; Note: Date Diagnose d: 03/25/20 19 2:41 PM (D33.3) Not Available [facility] 4 02:46:44 Dizzines s and giddines s 010138971 Active 2022 Dizzines s and giddines s; Note: Date Diagnose d: 3 3:16 PM (R42) Not Available [facility] 4 02:46:45 Impacted cerumen of bilatera l ears 93740093125 78331 Active 2023 HILARY MEHTA MD [address] [facility],[place] [address], [facility] [place], [address] , [place] - [facility] 4 14:01:15 Abnormal sputum 184029051 Active 2023 HILARY MEHTA MD [address] [facility],[address] [place], [address] , [place] - [facility] 4 14:08:26 Problem Notes None recorded. Procedures Surgical History Date Name Laterality Status Provider Name and Address Organization Details Recorded Time 5 Cerumen removal without microscope right completed RADHA MICHEL PA-C [address] [place] [address],[address], [address], [facility] 10/28/2024 11:45:33 5 Cerumen removal without microscope right completed RADHA MICHEL PA-C [address] [place] [address],[address], [address], [facility] 06/20/2024 12:06:36 4 Cerumen removal with microscope bilateral completed HILARY MEHTA MD [address] [facility],[address], [address], [facility] 03/02/2024 14:00:50 Imaging Results None recorded. Procedure Notes None recorded. Medical Equipment None Reported. Allergies Allergen ID Allergen Name Allergen Category Reaction Reaction Severity Criticality Documentation Date Start Date Code Code System Note Provider Name and Address Organization Details Recorded Time 324203 Product containin g penicilli n (product) medicatio n other Not available Not available 10/27/2023 83415 8001 SNOMED React ion: Unkno wn; Not Available [facility] 4 01:07:10 880234 levofloxa toni medicatio n other Not available Not available 10/27/2023 95588 RxNorm React ion: unkno wn, unspe cifie d;; Not Available [facility] 4 01:07:11 870554 cephalexi n medicatio n other Not available Not available 10/27/2023 2231 RxNorm React ion: Unkno wn; Not Available [facility] 4 01:07:12 Medications Name Sig Start Date Stop Date Status Note LastModified by Organization Details LastModified Time atorvasta tin 80 mg tablet TAKE 1 TABLET ONCE DAILY active Not Available Not Available No t Available lisinopri l 20 mg tablet TAKE 1 TABLET DAILY active Not Available Not Available No t Available sulfameth oxazole 800 mg-trimet hoprim 160 mg tablet TAKE 1 TABLET BY MOUTH TWICE A DAY DIRECTED 03/02 completed Not Available Not Available Not Available omeprazol e 40 mg capsule,d elayed release TAKE 1 CAPSULE TWICE DAILY active Not Available Not Available No t Available triamcino lone acetonide 0.1 % topical cream APPLY TO AFFECTED AREA TWICE A DAY NEEDED active Not Available Not Available No t Available hydrocort isone 2.5 % topical cream with perineal applicato r PLACE RECTALLY DAILY NEEDED active Not Available Not Available No t Available esomepraz ole magnesium 40 mg capsule,d elayed release 03/02 completed Medicati on ID: [id number] D uration Value: 90 Brand Name: patricia mccrary Send Method: E-Prescr ibed Sub s Allowed: subs OK Medic ationGen ericName : ketanomebernardo mccrary Not Available Not Available Not Available clotrimaz ole-betam ethasone 1 %-0.05 % topical cream APPLY TO AFFECTED AREA TWICE A DAY active Not Available Not Available No t Available nitroglyc katia 0.4 mg sub[address] l tablet [address] 1 TABLET UNDER THE TONGUE EVERY 5 MINUTES NEEDED FOR CHEST PAIN. active Not Available Not Available No t Available lisinopri l 40 mg tablet TAKE 1 TABLET EVERY MORNING active Not Available Not Available No t Available atenolol 50 mg tablet TAKE 1 TABLET DAILY active Not Available Not Available No t Available oxycodone 5 mg tablet TAKE 1 TABLET BY MOUTH EVERY 4 HOURS NEEDED 03/02 completed Not Available Not Available Not Available Glucosami ne-Chondr oitin-MSM Complex 375 mg-500 mg-15 mg-0.5 mg tablet active Medicati on ID: [id number] B rand Name: Glucosam ine-Real d-MSM Complex Send Method: E-Prescr ibed Sub s Allowed: subs OK Medic ationGen ericName : Glucosam ine-Real d-MSM Complex Not Available Not Available Not Available Vitals Date Recorded Body height Body mass index (BMI) Body weight Provider Name and Address Organization Details Last Updated DateTime 10/28/2024 176.53 cm 29.8 kg/m2 49849.44 g Stephani Turner [place] - [facility] 10/28/2024 11:20:48 Date Recorded Body height Body weight Provider Name and Address Organization Details Last Updated DateTime 03/02/2024 176.53 cm 05980.44 g Irina Beltran [place] - [facility] 03/02/2024 13:35:03 Social History Question Answer Notes LastModified by Organizat ion Details LastModified Time Tobacco Smoking Status Never Smoker Irina moore [place] - [facility] 03/02/2024 13:32:51 How Many Years Have You Consumed Alcohol? 0 Information not available 10/28/2024 How Many Alcoholic Drinks Do You Consume Per Day On Average? 0 Information not available 10/28/2024 Do You Have Any Pets? Yes Information not available 10/28/2024 Are You Passively Exposed To Smoke? No Information not available 10/28/2024 Are There Any Smokers In Your House? No Information not available 10/28/2024 Sex: Unknown Functional Status Question Answer Note LastModified by Organization Details LastModified Time How many times per week do you consume alcohol? Less than 1 time per week Inform ation not available 10/28/2024 Do you use any illicit or recreational drugs? No Information not available 10/28/2024 Do you or have you ever used any other forms of tobacco or nicotine? No Information not available 10/28/2024 What is your level of alcohol consumption? Occasional Information not available 10/28/2024 What type of noise exposure are you exposed to? noExposureToExcessiveNoise Infor mation not available 10/28/2024 Mental Status None recorded. Family History Nothing Reported. Medical History Condition Response Allergies/Hayfever Y Heart Problems N Anxiety N Tonsil Infections N Emphysema N Migraines N Thyroid Problems N Glaucoma N Depression N COPD N Developmental Delay N Nasal or Sinus Problems N Anemia N Immune System Disorder N Anesthesia Complications N Heart Attack (ND) Y Other Skin Condition N Diabetes N Rhinitis N Bleeding Disorder N Food Allergy N Arthritis Y Hearing Loss Y Hyperlipidemia N Cancer N Stroke N Dementia N Nasal polyps N Asthma N High Cholesterol Y Sleep Disorder N GERD/Reflux Y Liver Disease N Headaches N Fibromyalgia N Hypertension Y Speech Delay N Kidney Disease N Past Encounters Encounter ID Performer Location Encounter Start Date Encounter Closed Date Diagnosis/Indication Diagnosis SNOMED-CT Code Diagnosis ICD10 Code Diagnosis IMO Codes Diagnosis Note [id number] [facility] [address] [place] [address] [place] [address] 11/20/2023 13:55:33 12/03/2023 04:04:51 Sensorineural hearing loss of bilateral ears 312459370 H90.3 [id number] [facility] [place] [address] [place] [address] [place] [address] 12/07/2023 10:51:00 12/12/2023 04:07:04 Sensorineural hearing loss of bilateral ears 139350838 H90.3 [id number] HILARY MEHTA MD [facility] [address] [place] [address] 03/02/2024 13:19:39 03/02/2024 14:09:57 Impacted cerumen of bilateral ears 2831742468 330129 H61.23 Patient had rather severe cerumen impactions bilaterall y which were able to be cleaned today under the binocular microscope . No signs of acute or chronic inflammati on. In light of the rapid accumulati on of excess cerumen, he may do well with a regular preventati ve cleaning. I will have him come back to see a physician support assistant in 4 months for this. Sensorineu ral hearing loss of bilateral ears 199766275 H90.3 Recent audiometri c testing reviewed with the patient. He will continue to work with our audiology group to maximize his performanc e with amplificat ion technology . We did discuss the fact that he would be a candidate for [employer] amplificat ion but he has tried this in the past and was not happy with it. Abnormal sputum 36304676 0 R09.3 Patient reporting postnasal drip and excess sputum production . I will have him follow-up with one of my colleagues for further evaluation of this problem. [id number] [facility] [place] [address] [place] [address],[facility] [address] [place] [address] 03/07/2024 09:03:04 03/07/2024 15:36:56 Sensorineural hearing loss of bilateral ears 917807741 H90.3 [id number] [facility] [place] [address] [place] [address],[facility] [address] [place] [address] 05/06/2024 09:51:52 05/09/2024 06:57:31 Sensorineural hearing loss of bilateral ears 480047693 H90.3 [id number] RADHA MICHEL PA-C [facility] [address] [place] [address] 06/20/2024 11:21:30 06/20/2024 11:39:09 Impacted cerumen in right ear 6768265576 949111 H61.21 Weakness o f face muscles 82629424 R29.810 Sensorineu ral hearing loss of bilateral ears 763574688 H90.3 [id number] RADHA MICHEL PA-C [facility] [address] [place] [place] [address] 10/28/2024 11:09:44 10/28/2024 11:34:26 Impacted cerumen of bilateral ears 1813714076 213920 H61.23 Sensorineu ral hearing loss of bilateral ears 218063106 H90.3 Health Concerns Section Related Observation LastModified by Organization Detai ls LastModified Time None Recorded Concern Status LastModified by Organization Details LastModified Time None Recorded Advance Directives Directive None Recorded Payers Insurance Date Sequence Insurance Name Policy Number Policy Ibarra Covered Member ID Ibarra Member ID Guarantor Name 03/13/2025 1 [place] [email or web address] Francesco Denny [id number] Francesco Denny 03/13/2025 2 [place] [id number] Francesco Denny [id number] Francesco Denny Notes Date Note Type Note Provider Name and Address Organization Details Recorded Time 03/02/2024 text/html 83-year-old male with 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 He uses a left-sided hearing aid dispensed through our office. Patient comes in today for evaluation and cerumen disimpaction. HILARY MEHTA MD [address], [address], [place] - [facility] 03/02/2024 14:09:11 03/07/2024 text/html Concerns: Was feeling an echoic quality with his own voice but it has decreased since Dr Mehta cleaned his ear out. He notes that he has been pushing the hearing aid in farther and he is hearing better. He also notes that Dr Mehta noted that CROS technology has become much better since the last time he tried it. Check/clean: Changed filter, dome, and brushed microphones. GWO before and after cleaning.Dataloggin .5 hours.Adjustments: Firmware update completed. Increased mod and soft gain from 1k up 2 clicks. He felt his voice sounded much more natural with that change. FU: decided to keep the appointment in April so we can make sure the changes I made are working well and more changes don't need to be made. Last HT in October 2023. [facility] 100 [facility],[address], [address], [place] - [facility] 03/07/2024 09:35:25 05/06/2024 text/html Concerns: he notes he is still having trouble with his own voice but that it is intermittent and seems to go along with his sinus issues. He feels it is not due to the hearing aid anymore.Check/clean : Very clean. Vacuum chamber completed, microphones brushed, and filter/done changed. GWO before and after cleaning.Adjustment s: no adjustments made. No firmware updates were available today.FU: Annuals. Seeing Doctor/PA every 3 months for cerumen management. KRYSTLE COHEN 100 [facility],[address], [address], [place] - [facility] 05/06/2024 10:20:26 06/20/2024 text/html ROS as noted in the [facility] 84-year-old male presents for cerumen removal. History of right sided acoustic neuroma removed roughly 30 years ago. Data year on that side. Uses a hearing aid on the left side. No issues since his last visit. History of rapid cerumen accumulation. FRANCESCO WRIGHT MD 100 [facility],[address], [address], [place] - [facility] 06/20/2024 16:53:25 10/28/2024 text/html ROS as noted in the [facility] 84-year-old male presents for cerumen removal. History of hearing loss with a ear on the right side. Uses amplification for the left. FRANCESCO WRIGHT MD [address] [facility],[address], [address], [place] [facility] 10/31/2024 07:39:43
[2025-04-10 12:32] LABS: Resp Syncy Virus RNA Qual PCR NEGATIVE (Negative); SARS COV2 PCR INHOUSE NEGATIVE (Negative)
== END 2025-04-10 08:09 | disposition home or self-care (01) ==
LOC: HO.LAB 08:08
PROVIDERS: PCP Physician Assistant Surgical; Visit Provider Nurse Practitioner Family
DX: J06.9 Acute upper respiratory infection, unspecified (principal)
CPT/HCPCS: 87637; 99212